=== PATIENT | female | born 1965 | race Two or more races ===

== ENCOUNTER 2022-05-27 11:51 | Outpatient (REF) | payer OTHER, SELFPAY ==
--- NOTE | ~2022-05-27 | XR_ITS ---
EXAMINATION: XR CHEST CLINICAL INFORMATION: Asthma COMPARISON: None TECHNIQUE: 2 views of the chest were obtained. FINDINGS: No significant abnormality is noted involving the heart, lungs, mediastinum, bony thorax or soft tissues. XR/XR chest 2V IMPRESSION: Unremarkable chest examination.
[2022-05-27 12:07] LABS: MANUAL DIFF FLAG NO
[2022-05-27 12:37] LABS: Basophils Percent Auto 0.3 % (0-2); Eosinophils Absolute Auto 0.2 X10*3/uL (0.0-0.4); Hematocrit 40.2 % (37.0-47.0); Hemoglobin 13.2 g/dl (12.0-16.0); Imm Gran Abs Auto 0.03 X10*3/uL (0.00-0.03); Imm Gran Pct Auto 0.3 % (0.0-0.4); Lymphocytes Absolute Auto 2.7 X10*3/uL (1.2-4.9); Lymphocytes Percent Auto 30.1 % (20-40); Mean Corpuscular HGB Conc 32.8 g/dl (31.0-35.0); Mean Corpuscular Hemoglobin 29.9 pg (27.0-33.0); Mean Corpuscular Volume 91.2 fL (80.0-98.0); Mean Platelet Volume 10.4 fL (9.4-12.3); Monocytes Absolute Auto 0.5 X10*3/uL (0.1-1.2); Neutrophils Absolute Auto 5.5 x10*3/uL (2.0-8.3); Neutrophils Percent Auto 61.3 % (45-73); Platelet Count 382 X10*3/uL (160-400); Red Blood Count 4.41 X10*6/uL (4.20-5.50); Red Cell Distribution Width 12.5 % (11.0-16.0)
[2022-05-27 13:21] LABS: Appearance Urine HAZY; Color Urine YELLOW; Glucose Urine UA NEG (NEG); Leukocyte Esterase Urine NEG (NEG); Nitrite Urine POS (NEG); Specific Gravity - Urine >= 1.030 (1.005-1.025); UACC Culture Trigger YES; Urine Blood NEG (NEG); Urine Ketones NEG (NEG); Urine Protein TRACE MG/DL (NEG-TRACE)
[2022-05-27 13:23] LABS: Erythrocyte Sedimentation Rate 68 MM/HR (0-20)
[2022-05-27 13:38] LABS: Bacteria Urine 2+ /LPF; RBC Urine 0 /HPF (0)
[2022-05-27 13:39] LABS: Mucus Urine 2+ /LPF; Squamous Epithelial Cell Urine 2+ /LPF
[2022-05-27 13:40] LABS: Alanine Aminotransferase 23 U/L (0-31); Albumin Level 4.5 g/dL (3.5-5.0); Alkaline Phosphatase 116 U/L (39-117); Anion Gap 13 (12-20); Aspartate Amino Transferase 23 U/L (5-31); Bilirubin Total 0.4 mg/dL (0.0-1.0); Blood Urea Nitrogen 13 mg/dL (9-16); C Reactive Protein 1.57 mg/dL (< or = 0.50); Calcium 10.1 mg/dL (8.4-10.2); Carbon Dioxide 24 mmol/L (22-29); Chloride 107 mmol/L (96-108); Cholesterol 258 mg/dL; Estimated Glomerular Filt Rate > 60; Glucose Fasting 102 mg/dL (60-99); HDL Cholesterol 52 mg/dL; LDL Cholesterol Calculated 186 mg/dl; Potassium 4.5 mmol/L (3.3-5.1); Sodium 139 mmol/L (135-145); Total Protein 8.4 g/dL (6.5-8.0); Triglycerides 104 mg/dL
[2022-05-27 13:53] LABS: TSH reflex Free T4 0.57 uIU/mL (0.32-4.0)
[2022-05-28 17:07] LABS: Lyme Abs Screen <0.90 index
[2022-06-01 10:22] LABS: Anti Nuclear Antibody Screen NEGATIVE (NEGATIVE)
== END 2022-05-27 11:52 | disposition home or self-care (01) ==
LOC: HO.LAB 11:51
PROVIDERS: Visit Provider Internal Medicine
DX: E78.00 Pure hypercholesterolemia, unspecified (principal); M79.7 Fibromyalgia; J45.901 Unspecified asthma with (acute) exacerbation; I10 Essential (primary) hypertension; M79.10 Myalgia, unspecified site; E55.9 Vitamin D deficiency, unspecified; T14.8XXA Other injury of unspecified body region, initial encounter; W57.XXXA Bitten or stung by nonvenomous insect and other nonvenomous arthropods, initial encounter
CPT/HCPCS: 36415; 71046; 80053; 80061; 81001; 82306; 84443; 85025; 85652; 86038; 86039; 86140; 86617; 86618; 87086; 87088; 87186

== ENCOUNTER 2022-07-13 14:41 | Outpatient (REF) | payer OTHER, SELFPAY ==
[2022-07-13 15:04] LABS: MANUAL DIFF FLAG NO
[2022-07-13 15:49] LABS: Basophils Percent Auto 0.6 % (0-2); Eosinophils Absolute Auto 0.2 X10*3/uL (0.0-0.4); Eosinophils Percent Auto 3.2 % (0-4); Hematocrit 36.9 % (37.0-47.0); Hemoglobin 12.2 g/dl (12.0-16.0); Imm Gran Abs Auto 0.02 X10*3/uL (0.00-0.03); Imm Gran Pct Auto 0.3 % (0.0-0.4); Lymphocytes Absolute Auto 2.9 X10*3/uL (1.2-4.9); Lymphocytes Percent Auto 43.5 % (20-40); Mean Corpuscular HGB Conc 33.1 g/dl (31.0-35.0); Mean Corpuscular Hemoglobin 30.3 pg (27.0-33.0); Mean Corpuscular Volume 91.8 fL (80.0-98.0); Mean Platelet Volume 10.6 fL (9.4-12.3); Monocytes Absolute Auto 0.3 X10*3/uL (0.1-1.2); Monocytes Percent Auto 4.4 % (2-11); Neutrophils Absolute Auto 3.2 x10*3/uL (2.0-8.3); Platelet Count 361 X10*3/uL (160-400); Red Blood Count 4.02 X10*6/uL (4.20-5.50); Red Cell Distribution Width 12.8 % (11.0-16.0); White Blood Count 6.6 X10*3/uL (4.8-10.8)
[2022-07-13 16:30] LABS: Erythrocyte Sedimentation Rate 54 MM/HR (0-20)
[2022-07-15 14:46] LABS: IgA 256 mg/dL (47-310); IgG 1614 mg/dL (600-1640); IgM 64 mg/dL (50-300)
== END 2022-07-13 14:42 | disposition home or self-care (01) ==
LOC: HO.LAB 14:41
PROVIDERS: PCP Internal Medicine; Visit Provider Hospitalist
DX: J45.40 Moderate persistent asthma, uncomplicated (principal); J40 Bronchitis, not specified as acute or chronic; G47.33 Obstructive sleep apnea (adult) (pediatric); F33.9 Major depressive disorder, recurrent, unspecified
CPT/HCPCS: 36415; 82784; 82785; 85025; 85652; 86003; 99202

== ENCOUNTER → 2022-08-27 14:13 | Outpatient (BNVA) | payer OTHER, SELFPAY | PROVIDERS: PCP Internal Medicine; Visit Provider Hospitalist | DX: J45.40 Moderate persistent asthma, uncomplicated (principal); J40 Bronchitis, not specified as acute or chronic; G47.33 Obstructive sleep apnea (adult) (pediatric) | CPT/HCPCS: 99212 ==

== ENCOUNTER → 2022-10-25 14:17 | Outpatient (BNVA) | payer OTHER, SELFPAY | PROVIDERS: PCP Internal Medicine; Referring Provider Internal Medicine; Visit Provider Internal Medicine Rheumatology | DX: M79.7 Fibromyalgia (principal); M25.50 Pain in unspecified joint | CPT/HCPCS: 99202 ==

== ENCOUNTER 2022-12-01 13:42 | Outpatient (REF) | payer OTHER, SELFPAY ==
--- NOTE | ~2022-12-01 | XR_ITS ---
EXAMINATION: XR SHOULDER, RIGHT CLINICAL INFORMATION: Pain in right shoulder COMPARISON: 07/30/2020 TECHNIQUE: AP external rotation, Grashey, scapular Y, and axillary views of the right shoulder. FINDINGS: No fracture or dislocation. There is a calcification adjacent the greater tuberosity of the humerus which could reflect a small osteophyte or calcific tendinitis. Visualized right lung and ribs are normal. XR/XR shoulder RT min 2V IMPRESSION: Possible calcific tendinitis. No fracture or dislocation.
[2022-12-01 15:02] LABS: Alanine Aminotransferase 20 U/L (0-31); Albumin Level 4.1 g/dL (3.5-5.0); Alkaline Phosphatase 119 U/L (39-117); Anion Gap 9 (12-20); Aspartate Amino Transferase 17 U/L (5-31); Bilirubin Total 0.2 mg/dL (0.0-1.0); Blood Urea Nitrogen 16 mg/dL (9-16); C Reactive Protein 1.09 mg/dL (< or = 0.50); Calcium 9.9 mg/dL (8.4-10.2); Carbon Dioxide 28 mmol/L (22-29); Chloride 107 mmol/L (96-108); Cholesterol 211 mg/dL; Estimated Glomerular Filt Rate > 60; Glucose Fasting 115 mg/dL (60-99); HDL Cholesterol 44 mg/dL; LDL Cholesterol Calculated 142 mg/dl; Potassium 4.6 mmol/L (3.3-5.1); Sodium 139 mmol/L (135-145); Total Protein 7.5 g/dL (6.5-8.0); Triglycerides 129 mg/dL
[2022-12-01 15:17] LABS: Thyroid Stimulating Hormone 0.63 uIU/mL (0.32-4.0)
[2022-12-01 15:20] LABS: Erythrocyte Sedimentation Rate 48 MM/HR (0-20)
[2022-12-03 16:04] LABS: Cyclic Citrullinated Peptide <16 UNITS
== END 2022-12-01 13:43 | disposition home or self-care (01) ==
LOC: HO.XRAY 13:42
PROVIDERS: PCP Internal Medicine; Visit Provider Internal Medicine Rheumatology
DX: M25.511 Pain in right shoulder (principal); E78.00 Pure hypercholesterolemia, unspecified
CPT/HCPCS: 36415; 73030; 80053; 80061; 84443; 85652; 86140; 86200

== ENCOUNTER → 2022-12-07 14:54 | Outpatient (REF) | payer OTHER, SELFPAY ==
--- NOTE | 2022-12-07 16:40 | PFT_ITS ---
FLOWS: FEV1 82% of predicted at 1.81 L. FVC 71% of predicted at 1.98 L. FEV1 to FVC ratio of 0.91. No bronchodilator response. LUNG VOLUMES: Total lung capacity 73% of predicted at 3.18 L. Residual volume 63% of predicted at 1.04 L. Slow vital capacity 80% of predicted at 2.14 L. Expiratory reserve volume 32% of predicted at 0.24 L. Diffusion capacity is normal. IMPRESSION: Mild restrictive ventilatory defect with no bronchodilator response. Decreased expiratory reserve volume suggests extrathoracic restriction likely secondary to abdominal obesity. Usman Sawyer MD AP/MODL / [phone]
== END ==
LOC: HO.SL 14:54
PROVIDERS: PCP Internal Medicine; Visit Provider Hospitalist
DX: G47.33 Obstructive sleep apnea (adult) (pediatric) (principal); J45.909 Unspecified asthma, uncomplicated
CPT/HCPCS: 94060; 94727; 94729

== ENCOUNTER 2022-12-20 13:44 | Outpatient (REF) | payer OTHER, SELFPAY | END 2022-12-20 13:45 | disposition home or self-care (01) | LOC: HO.MDS 13:44 | PROVIDERS: Visit Provider Hospitalist | DX: J45.50 Severe persistent asthma, uncomplicated (principal) | CPT/HCPCS: 96372; J2357 ==

== ENCOUNTER 2023-01-03 13:55 | Outpatient (REF) | payer OTHER, SELFPAY | END 2023-01-03 13:56 | disposition home or self-care (01) | LOC: HO.MDS 13:55 | PROVIDERS: Visit Provider Hospitalist | DX: J45.50 Severe persistent asthma, uncomplicated (principal) | CPT/HCPCS: 96372; J2357 ==

== ENCOUNTER 2023-01-18 14:18 | Outpatient (REF) | payer OTHER, SELFPAY | END 2023-01-18 14:19 | disposition home or self-care (01) | LOC: HO.MDS 14:18 | PROVIDERS: Visit Provider Hospitalist | DX: J45.50 Severe persistent asthma, uncomplicated (principal) | CPT/HCPCS: 96372; J2357 ==

== ENCOUNTER 2023-02-01 13:57 | Outpatient (REF) | payer OTHER, SELFPAY | END 2023-02-01 13:58 | disposition home or self-care (01) | LOC: HO.MDS 13:57 | PROVIDERS: Visit Provider Hospitalist | DX: J45.50 Severe persistent asthma, uncomplicated (principal) | CPT/HCPCS: 96372; J2357 ==

== ENCOUNTER → 2023-04-01 14:25 | Outpatient (BNVA) | payer OTHER, SELFPAY | PROVIDERS: PCP Internal Medicine; Visit Provider Hospitalist | DX: J45.901 Unspecified asthma with (acute) exacerbation (principal); F41.9 Anxiety disorder, unspecified; Z79.899 Other long term (current) drug therapy | CPT/HCPCS: 99212 ==

== ENCOUNTER 2023-04-06 13:42 | Outpatient (REF) | payer OTHER, SELFPAY | END 2023-04-06 13:43 | disposition home or self-care (01) | LOC: HO.MDS 13:42 | PROVIDERS: Visit Provider Hospitalist | DX: J45.50 Severe persistent asthma, uncomplicated (principal) | CPT/HCPCS: 96372; J2357 ==

== ENCOUNTER 2023-05-21 17:04 | Emergency (ER) | payer OTHER, SELFPAY ==
--- NOTE | ~2023-05-21 | CT_ITS ---
EXAMINATION: CT ABDOMEN AND PELVIS WITHOUT CONTRAST CLINICAL INFORMATION: Upper abdominal pain COMPARISON: None available. TECHNIQUE: Multidetector volumetric imaging was performed from the superior aspect of the liver through the pubic symphysis. Sagittal and coronal reformatted images were obtained on the technologist's workstation. This CT examination was performed using dose optimization techniques as appropriate, variously including the following: *Automated exposure control *Adjustment of mA and/or kV according to patient size (this includes techniques or standardized protocols for targeted exams where dose is matched to indication/reason for exam; i.e. extremities or head) *Use of iterative reconstruction technique DLP: 602 mGy-cm FINDINGS: LUNG BASES: The visualized lung bases are unremarkable. LIVER, GALLBLADDER, AND BILIARY TREE: The liver is normal in size and shape but demonstrates decreased attenuation suggesting hepatic steatosis. No focal hepatic lesion or biliary ductal dilatation is present. Status post cholecystectomy PANCREAS: Unremarkable. SPLEEN: Unremarkable. ADRENAL GLANDS: Unremarkable. KIDNEYS AND URETERS: The kidneys are normal in size, shape, and attenuation. No hydronephrosis, hydroureter, or calculi seen. No perinephric stranding. BLADDER: Unremarkable. GASTROINTESTINAL TRACT: The small and large bowel are unremarkable. The appendix is unremarkable. ABDOMINAL WALL: No significant hernia is appreciated. LYMPH NODES: Normal. VASCULAR: Calcific atherosclerotic changes are present in the infrarenal aorta without aneurysm. PELVIC VISCERA: Unremarkable. OSSEOUS STRUCTURES: Unremarkable. CT/CT abdomen pelvis wo IV con IMPRESSION: A cause for the patient's upper abdominal pain has not been found. Incidental note made of hepatic steatosis and cholecystectomy. Fleischner guidelines were followed.
[2023-05-21 17:36] VITALS: BP 139/78; PULSE 95; RESP 16; TEMP 36.4; O2SAT 95; BMI 21.8
--- NOTE | 2023-05-21 17:36 | ED_ITS ---
HPI - Abdominal Pain General Chief Complaint: Abdominal Pain Stated Complaint: abd pain vomiting Time Seen by Provider: 05/21/23 18:26 Source: patient Mode of arrival: ambulatory Limitations: no limitations History of Present Illness HPI narrative: Patient status post cholecystectomy with history of gastritis comes here for 3 days of upper abdominal pain with vomiting and diarrhea multiple times no fever no chills no urinary symptom pain gets worse when she eats no other family member sick Related Data Home Medications Medication Instructions Recorded Confirmed miscellaneous medical supply ea miscellaneous 05/27/22 04/05/23 Previous Rx's Medication Instructions Recorded NEBULIZER with all related #1 ea 05/27/22 accessories fluticasone propionate 110 2 inh inhalation BID PRN asthma 30 05/27/22 mcg/actuation HFA aerosol inhaler days #12 grams (Flovent HFA) bupropion HCl 200 mg tablet,12 hr 200 mg PO BID #180 caps 05/31/22 sustained-release cyclobenzaprine 5 mg tablet 5 mg PO Q8H PRN muscle spasm 5 05/31/22 days #15 tabs hydroxyzine HCl 25 mg tablet 25 mg PO Q8H PRN for anxiety #90 05/31/22 tabs lidocaine 4 % topical patch 1 patch topical DAILY PRN pain 7 05/31/22 (Aspercreme (lidocaine)) days #10 ea loratadine 10 mg tablet 10 mg PO DAILY PRN for allergies 05/31/22 #30 tabs meloxicam 15 mg tablet 15 mg PO DAILY PRN for pain #30 05/31/22 tabs mirtazapine 7.5 mg tablet 7.5 mg PO BEDTIME #30 tabs 05/31/22 pantoprazole 40 mg tablet,delayed 40 mg PO DAILY 30 days #30 tabs 05/31/22 release sucralfate 1 gram tablet 1 g PO QID #120 tabs 05/31/22 topiramate 25 mg tablet 25 mg PO BEDTIME #30 tabs 05/31/22 triamcinolone acetonide 0.5 % 1 appl topical BID #45 grams 05/31/22 topical cream budesonide-formoterol HFA 160 2 puff inhalation BID 30 days 07/13/22 mcg-4.5 mcg/actuation aerosol #10.2 grams inhaler (Symbicort) inhalational spacing device #1 ea 07/13/22 (Aerochamber MV spacer) fluticasone propionate 50 2 spray intranasal BID 30 days 08/27/22 mcg/actuation nasal #15.8 mL spray,suspension omalizumab 150 mg subcutaneous 375 mg subcut Q2W #3 ea 09/16/22 solution atorvastatin 10 mg tablet 10 mg PO BEDTIME 30 days #30 tabs 09/22/22 montelukast 10 mg tablet 10 mg PO BEDTIME #30 tabs 11/01/22 gabapentin 300 mg capsule 300 mg PO TID 30 days #90 caps 01/05/23 albuterol sulfate 2.5 mg/3 mL 2.5 mg (3 mL) continuous 01/24/23 (0.083 %) solution for nebulization nebulization Q6H 30 days #360 mL albuterol sulfate 90 mcg/actuation 2 puff PO QID PRN shortness of 01/24/23 aerosol inhaler breath or wheezing #8.5 grams mometasone 0.1 % topical cream 1 appl topical DAILY #45 grams 01/25/23 epinephrine 0.3 mg/0.3 mL 0.3 mg (0.3 mL) IM Q10M PRN 04/01/23 injection, auto-injector (EpiPen anaphylaxis 30 days #2 ea 2-Jos) clonazepam 1 mg tablet 1 mg PO TID PRN anxiety 30 days 04/27/23 #90 tabs tramadol 50 mg tablet 50 mg PO Q8H PRN pain 30 days #90 04/27/23 tabs zolpidem 10 mg tablet 10 mg PO BEDTIME PRN insomnia 30 04/27/23 days #30 tabs ketoconazole 2 % shampoo 1 appl topical 3XW #120 mL 05/09/23 ondansetron 4 mg disintegrating 4 mg PO Q6-8H PRN nausea and 05/21/23 tablet vomiting #7 tabs Allergies Allergy/AdvReac Type Severity Reaction Status Date / Time FRUIT Allergy Severe HIVES Uncoded 05/21/23 17:36 Review of Systems Review of Systems Yes all other systems are reviewed and are negative PMFSH Past Medical History Medical History Allergic rhinitis Anxiety Asthma Depression Fibromyalgia Frequent falls GERD without esophagitis Insomnia Migraine Obesity (BMI 30-39.9) LISA (obstructive sleep apnea) Pure hypercholesterolemia Right knee pain Seborrhea capitis Smoker Upper back pain Surgical History History of bilateral breast reduction surgery History of cholecystectomy History of surgery History of tubal ligation Family History Family History Father Medical history unknown Mother Hypertension CVD (cardiovascular disease) Depression Social History Social History Housing: House Alcohol intake: never Patient Tobacco Use Status: Current everyday Tobacco user Cigarettes Per Day: 4 Smoked in Last 30 Days: Yes e-Cigarette/Vaping Use: Never Used Second Hand Smoke Exposure: Yes Use of substances other than those prescribed or required for medical reasons: No Advance Directives: No Advance Directives Information Provided: No Patient : No service: No Current occupational status: disabled Cognitive needs: No Hearing needs: No Vision needs: Yes Physical Exam ED Vital Signs: Vital Signs - 24 hr 05/21/23 17:36 05/21/23 18:47 Temperature 97.6 F 98.3 F Pulse Rate 95 89 Respiratory Rate 16 20 Blood Pressure 139/78 145/79 H Pulse Oximetry 95 90 L Oxygen Delivery Method Room Air Room Air BMI result Body Mass Index 21.8 Appearance: Alert. Oriented X3. No acute distress. Eyes: No pallor or icterus ENT: Pharynx normal. Oral Mucosa moist Neck: Normal inspection. Neck supple. CVS: Normal heart rate and rhythm. Pulses normal. Respiratory: No respiratory distress. Equal air entry bilateral, no wheezing/rales/rhonchi Abdomen: Soft tenderness right upper quadrant and epigastric area Bowel sounds are present, no mass palpable, no CVA tenderness Skin: Skin warm and dry. Normal skin color. Normal skin turgor. Extremities: No lower extremity edema. No calf tenderness Neuro: Oriented X 3. Course Course Course Narrative: This is an RME: Additional HPI, ROS, PE not included below will be deferred to primary provider. Patient is a 57-year-old female who presents emergency department for evaluation of RUQ abdominal pain stabbing in nature, nausea, vomiting, diarrhea x 3 days. pain worsens at times with particular movement. Subjective fever and chills. Denies genitourinary symptoms. hx cholecystectomy 15 years ago. Plan: Labs, urinalysis Medical Decision Making Medical Decision Making [facility] Narrative: Patient with nonspecific upper abdominal pain status post cholecystectomy labs are stable CT scan also negative patient feeling better after IV fluids and pain medicine likely has gastritis with gastroenteritis patient does have fibromyalgi a and takes tramadol for pain will continue same Lab Data [facility] Lab Attestation statement: I reviewed the patient's lab results. 05/21/23 17:50 05/21/23 17:50 Labs: Lab Results 05/21/23 05/21/23 05/21/23 Range/Units 17:50 17:50 17:52 WBC 9.3 (4.8-10.8) X10*3/uL RBC 4.13 L (4.20-5.50) X10*6/uL Hgb 12.7 (12.0-16.0) g/dl Hct 37.6 (37.0-47.0) % MCV 91.0 (80.0-98.0) fL MCH 30.8 (27.0-33.0) pg MCHC 33.8 (31.0-35.0) g/dl RDW 12.5 (11.0-16.0) % Plt Count 375 (160-400) X10*3/uL MPV 10.6 (9.4-12.3) fL Immature Gran % (Auto) 0.2 (0.0-0.4) % Neut % (Auto) 55.5 (45-73) % Lymph % (Auto) 35.3 (20-40) % Walsh % (Auto) 4.7 (2-11) % Eos % (Auto) 3.5 (0-4) % Baso % (Auto) 0.8 (0-2) % Lymph # (Auto) 3.3 (1.2-4.9) X10*3/uL Walsh # (Auto) 0.4 (0.1-1.2) X10*3/uL Eos # (Auto) 0.3 (0.0-0.4) X10*3/uL Baso # (Auto) 0.1 (0.0-0.2) X10*3/uL Abs Immat Gran (auto) 0.02 (0.00-0.03) X10*3/uL Absolute Neuts (auto) 5.2 (2.0-8.3) x10*3/uL Absolute Nucleated RBC 0.000 (0.0-0.012) X10*3/uL Nucleated RBC % (auto) 0.0 (0.0-0.2) /100WBC Sodium 140 (135-145) mmol/L Potassium 4.1 (3.3-5.1) mmol/L Chloride 108 (96-108) mmol/L Carbon Dioxide 24 (22-29) mmol/L Anion Gap 12 (12-20) BUN 8 L (9-16) mg/dL Creatinine 0.79 (0.5-1.4) mg/dL Estim Creat Clear Calc 89.8 Estimated GFR > 60 Random Glucose 103 (60-115) mg/dL Calcium 10.2 (8.4-10.2) mg/dL Total Bilirubin 0.4 (0.0-1.0) mg/dL AST 25 (5-31) U/L ALT 29 (0-31) U/L Alkaline Phosphatase 119 H (39-117) U/L Total Protein 8.1 H (6.5-8.0) g/dL Albumin 4.1 (3.5-5.0) g/dL Lipase 15 (8-78) U/L Urine Color Yellow Urine Appearance Clear Urine pH 5.5 (5.0-9.0) Ur Specific [place] 1.020 (1.005-1.025) Urine Protein Negative (Neg-Trace) mg/dL Urine Glucose (UA) Negative (Negative) mg/dL Urine Ketones Negative (Negative) mg/dL Urine Blood Negative (Negative) Urine Nitrite Negative (Negative) Ur Leukocyte Esterase Negative (Negative) Urine Test (NEGATIVE) 05/21/23 Range/Units 17:52 WBC (4.8-10.8) X10*3/uL RBC (4.20-5.50) X10*6/uL Hgb (12.0-16.0) g/dl Hct (37.0-47.0) % MCV (80.0-98.0) fL MCH (27.0-33.0) pg MCHC (31.0-35.0) g/dl RDW (11.0-16.0) % Plt Count (160-400) X10*3/uL MPV (9.4-12.3) fL Immature Gran % (Auto) (0.0-0.4) % Neut % (Auto) (45-73) % Lymph % (Auto) (20-40) % Walsh % (Auto) (2-11) % Eos % (Auto) (0-4) % Baso % (Auto) (0-2) % Lymph # (Auto) (1.2-4.9) X10*3/uL Walsh # (Auto) (0.1-1.2) X10*3/uL Eos # (Auto) (0.0-0.4) X10*3/uL Baso # (Auto) (0.0-0.2) X10*3/uL Abs Immat Gran (auto) (0.00-0.03) X10*3/uL Absolute Neuts (auto) (2.0-8.3) x10*3/uL Absolute Nucleated RBC (0.0-0.012) X10*3/uL Nucleated RBC % (auto) (0.0-0.2) /100WBC Sodium (135-145) mmol/L Potassium (3.3-5.1) mmol/L Chloride (96-108) mmol/L Carbon Dioxide (22-29) mmol/L Anion Gap (12-20) BUN (9-16) mg/dL Creatinine (0.5-1.4) mg/dL Estim Creat Clear Calc Estimated GFR Random Glucose (60-115) mg/dL Calcium (8.4-10.2) mg/dL Total Bilirubin (0.0-1.0) mg/dL AST (5-31) U/L ALT (0-31) U/L Alkaline Phosphatase (39-117) U/L Total Protein (6.5-8.0) g/dL Albumin (3.5-5.0) g/dL Lipase (8-78) U/L Urine Color Urine Appearance Urine pH (5.0-9.0) Ur Specific [place] (1.005-1.025) Urine Protein (Neg-Trace) mg/dL Urine Glucose (UA) (Negative) mg/dL Urine Ketones (Negative) mg/dL Urine Blood (Negative) Urine Nitrite (Negative) Ur Leukocyte Esterase (Negative) Urine Test NEGATIVE (NEGATIVE) Medications Administered Discontinued Medications Generic Name Dose Route Start Last Admin Trade Name Freq PRN Reason Stop Dose Admin Sodium Chloride 1,000 mls @ 999 mls/hr 05/21/23 18:49 05/21/23 20:24 Ns IV 05/21/23 19:49 Infused .Q1H1M ONE Infusion Morphine Sulfate 4 mg 05/21/23 18:49 05/21/23 19:17 Morphine Sulfate 4 Mg/Ml Cartridge IVPUSH 05/21/23 18:50 4 mg ONCE ONE Administration Protocol Ondansetron HCl 4 mg 05/21/23 18:49 05/21/23 19:17 Ondansetron Hcl 4 Mg/2 Ml Vial IVPUSH 05/21/23 18:50 4 mg ONCE ONE Administration Discharge Plan Discharge Clinical Impression: Gastroenteritis Patient Disposition: Home, Self-Care Instructions: Gastroenteritis (ED) Additional Instructions: Drink plenty of fluids Meds for nausea/vomiting as prescribed Continue your pain medication and follow up with PCP Prescriptions: New ondansetron 4 mg tablet,disintegrating 4 mg PO Q6-8H PRN (Reason: nausea and vomiting) Qty: 7 0RF No Action omalizumab 150 mg recon soln 375 mg subcut Q2W Qty: 3 11RF Rx Instructions: requires multiple injection sites; do not exceed 150 mg per injection site montelukast 10 mg tablet 10 mg PO BEDTIME Qty: 30 1RF albuterol sulfate 2.5 mg /3 mL (0.083 %) solution for nebulization 2.5 mg continuous nebulization Q6H 30 Days Qty: 360 5RF albuterol sulfate 90 mcg/actuation HFA aerosol inhaler 2 puff PO QID PRN (Reason: shortness of breath or wheezing) Qty: 8.5 5RF mometasone 0.1 % cream 1 appl topical DAILY Qty: 45 0RF clonazepam 1 mg tablet 1 mg PO TID PRN (Reason: anxiety) 30 Days Qty: 90 0RF tramadol 50 mg tablet 50 mg PO Q8H PRN (Reason: pain) 30 Days Qty: 90 0RF zolpidem 10 mg tablet 10 mg PO BEDTIME PRN (Reason: insomnia) 30 Days Qty: 30 0RF ketoconazole 2 % shampoo 1 appl topical 3XW Qty: 120 0RF atorvastatin 10 mg tablet 10 mg PO BEDTIME 30 Days Qty: 30 3RF miscellaneous medical supply Misc miscellaneous Rx Instructions: Nebulizer Machine (DME) NEBULIZER with all related accessories See Rx Instructions .Route .MEDSUPPLY Qty: 1 0RF Rx Instructions: As directed up to 4 times a day as needed Flovent HFA 110 mcg/actuation HFA aerosol inhaler 2 inh inhalation BID PRN (Reason: asthma) 30 Days Qty: 12 5RF bupropion HCl 200 mg tablet sustained-release 12 hr 200 mg PO BID Qty: 180 0RF cyclobenzaprine 5 mg tablet 5 mg PO Q8H PRN (Reason: muscle spasm) 5 Days Qty: 15 0RF hydroxyzine HCl 25 mg tablet 25 mg PO Q8H PRN (Reason: for anxiety) Qty: 90 1RF lidocaine [Aspercreme (lidocaine)] 4 % adhesive patch,medicated 1 patch topical DAILY PRN (Reason: pain) 7 Days Qty: 10 0RF loratadine 10 mg tablet 10 mg PO DAILY PRN (Reason: for allergies) Qty: 30 3RF meloxicam 15 mg tablet 15 mg PO DAILY PRN (Reason: for pain) Qty: 30 1RF mirtazapine 7.5 mg tablet 7.5 mg PO BEDTIME Qty: 30 1RF sucralfate 1 gram tablet 1 g PO QID Qty: 120 3RF topiramate 25 mg tablet 25 mg PO BEDTIME Qty: 30 1RF triamcinolone acetonide 0.5 % cream 1 appl topical BID Qty: 45 0RF pantoprazole 40 mg tablet,delayed release (DR/EC) 40 mg PO DAILY 30 Days Qty: 30 5RF gabapentin 300 mg capsule 300 mg PO TID 30 Days Qty: 90 2RF budesonide-formoterol [Symbicort] 160-4.5 mcg/actuation HFA aerosol inhaler 2 puff inhalation BID 30 Days Qty: 10.2 11RF (DME) Aerochamber MV Spacer See Rx Instructions .ROUTE .MEDSUPPLY Qty: 1 0RF Rx Instructions: As directed fluticasone propionate 50 mcg/actuation spray,suspension 2 spray intranasal BID 30 Days Qty: 15.8 11RF epinephrine [EpiPen 2-Jos] 0.3 mg/0.3 mL auto-injector 0.3 mg IM Q10M PRN (Reason: anaphylaxis) 30 Days Qty: 2 6RF Rx Instructions: for 2 doses Print Language: Occitan
[2023-05-21 18:02] LABS: MANUAL DIFF FLAG NO
[2023-05-21 18:07] LABS: UPreg QC Valid YES
[2023-05-21 18:08] LABS: Appearance Urine Clear; Color Urine Yellow; Glucose Urine UA Negative (Negative); Leukocyte Esterase Urine Negative (Negative); Nitrite Urine Negative (Negative); PH 5.5 (5.0-9.0); Urine Blood Negative (Negative); Urine Ketones Negative (Negative); Urine Protein Negative (Neg-Trace)
[2023-05-21 18:09] LABS: Urine Pregnancy NEGATIVE (NEGATIVE)
[2023-05-21 18:17] LABS: Alanine Aminotransferase 29 U/L (0-31); Albumin Level 4.1 g/dL (3.5-5.0); Alkaline Phosphatase 119 U/L (39-117); Anion Gap 12 (12-20); Aspartate Amino Transferase 25 U/L (5-31); Bilirubin Total 0.4 mg/dL (0.0-1.0); Blood Urea Nitrogen 8 mg/dL (9-16); Calcium 10.2 mg/dL (8.4-10.2); Carbon Dioxide 24 mmol/L (22-29); Chloride 108 mmol/L (96-108); Creatinine Clr Calc Pharmacy 89.8; Estimated Glomerular Filt Rate > 60; Glucose Random 103 mg/dL (60-115); Lipase 15 U/L (8-78); Potassium 4.1 mmol/L (3.3-5.1); Sodium 140 mmol/L (135-145); Total Protein 8.1 g/dL (6.5-8.0)
[2023-05-21 18:29] LABS: Basophils Absolute Auto 0.1 X10*3/uL (0.0-0.2); Basophils Percent Auto 0.8 % (0-2); Eosinophils Absolute Auto 0.3 X10*3/uL (0.0-0.4); Eosinophils Percent Auto 3.5 % (0-4); Hematocrit 37.6 % (37.0-47.0); Hemoglobin 12.7 g/dl (12.0-16.0); Imm Gran Abs Auto 0.02 X10*3/uL (0.00-0.03); Imm Gran Pct Auto 0.2 % (0.0-0.4); Lymphocytes Absolute Auto 3.3 X10*3/uL (1.2-4.9); Lymphocytes Percent Auto 35.3 % (20-40); Mean Corpuscular HGB Conc 33.8 g/dl (31.0-35.0); Mean Corpuscular Hemoglobin 30.8 pg (27.0-33.0); Mean Platelet Volume 10.6 fL (9.4-12.3); Monocytes Absolute Auto 0.4 X10*3/uL (0.1-1.2); Monocytes Percent Auto 4.7 % (2-11); Neutrophils Absolute Auto 5.2 x10*3/uL (2.0-8.3); Neutrophils Percent Auto 55.5 % (45-73); Platelet Count 375 X10*3/uL (160-400); Red Blood Count 4.13 X10*6/uL (4.20-5.50); Red Cell Distribution Width 12.5 % (11.0-16.0); White Blood Count 9.3 X10*3/uL (4.8-10.8)
[2023-05-21 18:47] VITALS: BP 145/79; PULSE 89; RESP 20; TEMP 36.8; O2SAT 90
--- NOTE | 2023-05-21 18:54 | PC.NURSE ---
history of asthma and severe arthritis
[2023-05-21] MEDS: 0.9 % Sodium Chloride 1,000 ML 999 ML IV (19:17)
[2023-05-21] MEDS: Morphine Sulfate 4 MG/ML CARTRIDGE IVPUSH (19:17)
[2023-05-21] MEDS: ondansetron HCL 4 MG/2 ML VIAL IVPUSH (19:17)
--- NOTE | 2023-05-21 19:26 | PC.NURSE ---
pt medicated with morphine and zofran. tolerated well
== END 2023-05-21 21:51 | disposition home or self-care (01) ==
PROVIDERS: Nurse Practitioner Family; Emergency Provider Internal Medicine; PCP Internal Medicine
DX: K52.9 Noninfective gastroenteritis and colitis, unspecified (principal); E78.00 Pure hypercholesterolemia, unspecified; K21.9 Gastro-esophageal reflux disease without esophagitis; Z90.49 Acquired absence of other specified parts of digestive tract; Z98.51 Tubal ligation status; F17.210 Nicotine dependence, cigarettes, uncomplicated; Z79.899 Other long term (current) drug therapy; Z79.02 Long term (current) use of antithrombotics/antiplatelets
CPT/HCPCS: 36415; 74176; 80053; 81003; 81025; 83690; 85025; 96361; 96374; 96375; 99284; J2270; J2405

== ENCOUNTER 2023-05-23 14:47 | Outpatient (REF) | payer OTHER, SELFPAY | END 2023-05-23 14:48 | disposition home or self-care (01) | LOC: HO.MDS 14:47 | PROVIDERS: PCP Internal Medicine; Visit Provider Hospitalist | DX: J45.50 Severe persistent asthma, uncomplicated (principal) | CPT/HCPCS: 96372; J2357 ==

== ENCOUNTER 2023-06-06 14:20 | Outpatient (REF) | payer OTHER, SELFPAY | END 2023-06-06 14:21 | disposition home or self-care (01) | LOC: HO.MDS 14:20 | PROVIDERS: Visit Provider Hospitalist | DX: J45.50 Severe persistent asthma, uncomplicated (principal) | CPT/HCPCS: 96372; J2357 ==

== ENCOUNTER 2023-06-20 14:20 | Outpatient (REF) | payer OTHER, SELFPAY | END 2023-06-20 14:21 | disposition home or self-care (01) | LOC: HO.MDS 14:20 | PROVIDERS: Visit Provider Hospitalist | DX: J45.50 Severe persistent asthma, uncomplicated (principal) | CPT/HCPCS: 96372; J2357 ==

== ENCOUNTER 2023-08-05 13:15 | Outpatient (AMB) | payer OTHER, SELFPAY ==
[2023-08-05 13:28] VITALS: PULSE 89; O2SAT 98; BMI 35.3
--- NOTE | 2023-08-05 13:28 | MHC.OFFVIS ---
Intake Vital Signs 08/05/23 13:28 Height 4 ft 11 in Weight 174 lb 13.225 oz BMI 35.3 Pulse 89 Pulse Source Pulse Oximeter Pulse Oximetry (%) 98 Oxygen Delivery Method Room Air Intake Visit Reasons: Asthma Wrapper Sorter Required: No Allergies FRUIT Allergy (Severe, Uncoded 08/05/23 13:29) HIVES HPI HPI Comments History of Present Illness Details The patient is a 57-year-old woman with a known history of asthma for the last several years. Her asthma seems to be getting worse. She states that she developed asthma when she moved to [facility]. She complains of chest tightness and coughing. She also has audible wheezing. She has been using Flovent on a regular basis and has required her rescue inhaler multiple times a day. The patient states that she is allergic to everything. Although I do not see any formal allergy testing at this time. Will optimize her respiratory therapy at this time. She also states that she gets very anxious and she does develop chest tightness. In addition to this the patient states that she does wake up short of breath at times. She complains of daytime drowsiness with an elevated [place] score of 12/24. It is likely that the episodes are apneic episodes. The patient would benefit from a home sleep study at this time. 08/27/2022 the patient is here for a pulmonary follow-up visit. The patient overall has been running worsening cough shortness of breath. He has been sick now for about 5 days. Apparently she tested negative for COVID-19. She has been using inhaler and her nebulizer every 3 hours. We did review her allergy testing which was very abnormal with multiple triggers. The patient's IgE level is up to 1200. therefore, the patient does have allergic asthma and does require multiple courses of prednisone even on maximum respiratory therapy. Therefore I will request the patient start Xolair this time. The patient also needs to undergo pulmonary function studies when she feels better and also needs to reschedule her sleep study which she did not have done. She continues to have daytime drowsiness. She does have issues with snoring at nighttime. Her [place] score still elevated 11/24. When she returns can review her pftS and her PSG. 23 The patient here for a pulmoary follow up visit. Overall, the patient is doing better on the Xolair therapy. Continue to use the symbicort twice a day. Has not required prednisone. She needs to have an Epipen, we provided teaching and will send the pharmacy. Still having daytime drowsiness with EPWORTH 07/21, but, PSG not available. Her PFTs demonstrates a mild restrictive process. 08/05/2023 the patient is here for pulmonary follow-up visit. She does complain of productive cough. Moderate severity. The patient has been using her respiratory therapy although she is not using Symbicort. I did explain to her Symbicort be a better medication for will go ahead and stop Flovent. In addition to that she continues on the Xolair. The patient unfortunately has been smoking. She does have worsening cough which is likely related to smoking. Likely has a component chronic bronchitis. Will go ahead prescribe azithromycin she can use 3 times a week x1 month to see if this provides relief. In the meantime she needs to quit smoking she is quit altogether cold turkey in the past she will go ahead and attempt that again. [facility] Medical History Allergic rhinitis Anxiety Asthma Depression Fibromyalgia Frequent falls GERD without esophagitis Insomnia Migraine Obesity (BMI 30-39.9) LISA (obstructive sleep apnea) Pure hypercholesterolemia Right knee pain Seborrhea capitis Smoker Upper back pain Surgical History History of bilateral breast reduction surgery History of cholecystectomy History of surgery History of tubal ligation Family History Father Medical history unknown Mother Hypertension CVD (cardiovascular disease) Depression Social History Housing: House Alcohol intake: never Patient Tobacco Use Status: Current everyday Tobacco user Cigarettes Per Day: 4 e-Cigarette/Vaping Use: Never Used Second Hand Smoke Exposure: Yes service: No Current occupational status: disabled Cognitive needs: No Hearing needs: No Vision needs: Yes Review of Systems Const Reports body aches (diffuse), Denies chills, Reports difficulty sleeping, Reports fatigue, Denies fever(s), Denies headache(s) and Reports lethargy ENT Denies dysphagia, Denies dizziness, Denies otalgia, Denies headache(s), Denies sinus pain and Denies sore throat Card Denies chest pain, Denies palpitations and Reports dyspnea on exertion (mild) Resp Reports chest congestion, Reports cough, Reports dyspnea on exertion (mild) and Denies wheezing GI Denies abdominal pain, Denies constipation, Denies dysphagia, Denies heartburn, Denies diarrhea, Denies nausea and Denies vomiting Denies nocturia and Denies dysuria Musc Reports back pain (over the lumbar spine (chronic) and more recently over the thoracic spine), Reports myalgias (c/o diffuse pain) and Reports arthralgias (right knee; increased pain in both hands lately) Neuro Denies dizziness and Denies headache(s) Psych Reports anxiety and Reports depression Endo Reports fatigue and Denies palpitations Aller/Immun Denies wheezing Physical Exam Vital Signs: Last Vital Signs Pulse 89 08/05/23 13:28 Pulse Ox 98 08/05/23 13:28 Oxygen Delivery Method Room Air 08/05/23 13:28 BMI result Body Mass Index 35.3 Const General: comfortable HEENT Head: Yes normal to inspection Eyes General: appearance normal, both eyes and all related structures Neck Neck: Yes supple Chest Chest palpation & inspection: normal inspection of the chest Resp Effort & Inspection: normal respiratory effort Auscultation: no rales, no rhonchi, no wheezes and diminished lung sounds Cardio Rate: regular rate Rhythm: regular rhythm Heart sounds: S1 normal heart sound present and S2 normal heart sound present GI Inspection: Yes normal to inspection Skin Rashes: rashes noted (scalp, psoriasis) Extrem General: Yes no clubbing, cyanosis or edema Assessment & Plan Assessment & Plan (1) Asthma: Code(s): J45.909 - Unspecified asthma, uncomplicated Qualifiers: Asthma complication type: uncomplicated Asthma persistence: persistent Asthma severity: moderate Qualified Code(s): J45.40 - Moderate persistent asthma, uncomplicated (2) LISA (obstructive sleep apnea): Code(s): G47.33 - Obstructive sleep apnea (adult) (pediatric) (3) Bronchitis: Code(s): J40 - Bronchitis, not specified as acute or chronic Plan start Symbicort with spacer stop Flovent start Azithromycin MWF Tobacco cessation Nebulizer ADAM as needed continue xolair Epipen teaching, rx sent F/U 6 months Medications: New azithromycin Take 1 tablet on Tuesday/Tuesday/Tuesday 250 mg PO 3XW 28 days 12 tabs 0RF K21.9 - Gastro-esophageal reflux disease without esophagitis Refilled budesonide-formoterol 160-4.5 mcg/actuation (Symbicort) 2 puffs inhalation BID 30 days 10.2 grams 11RF J44.9 - Chronic obstructive pulmonary disease, unspecified Discontinued fluticasone propionate 110 mcg/actuation (Flovent HFA) Discontinued Reason: Doctor's Order 2 inhalations inhalation BID 30 days PRN 12 grams 5RF asthma J45.901 - Unspecified asthma with (acute) exacerbation Coding Level of Care Code Est Pt Level 4 (70365) Diagnoses Moderate persistent asthma without complication J45.40 Asthma complication type: uncomplicated Asthma persistence: persistent Asthma severity: moderate LISA (obstructive sleep apnea) G47.33 Bronchitis J40 Time Spent (min) 17
== END 2023-08-05 13:55 | disposition home or self-care (01) ==
PROVIDERS: PCP Internal Medicine; Visit Provider Hospitalist
DX: J45.40 Moderate persistent asthma, uncomplicated (principal); G47.33 Obstructive sleep apnea (adult) (pediatric); J40 Bronchitis, not specified as acute or chronic
CPT/HCPCS: 99214

== ENCOUNTER 2023-08-15 | Outpatient (REF) | payer OTHER, SELFPAY | END 2023-08-15 00:01 | disposition home or self-care (01) | LOC: CF | PROVIDERS: Visit Provider Hospitalist | DX: J45.41 Moderate persistent asthma with (acute) exacerbation (principal); G47.33 Obstructive sleep apnea (adult) (pediatric); J40 Bronchitis, not specified as acute or chronic; F17.210 Nicotine dependence, cigarettes, uncomplicated | CPT/HCPCS: 99212; J2357 ==

== ENCOUNTER 2025-07-12 15:25 | Outpatient (REF) | payer OTHER, SELFPAY ==
--- NOTE | ~2025-07-12 | XR_ITS ---
EXAMINATION: XR CERVICAL SPINE CLINICAL INFORMATION: M54.2 - Cervicalgia COMPARISON: July 30, 2020 TECHNIQUE: AP lateral and atlantoodontoid views FINDINGS: Craniocervical junction is intact. Small marginal osteophyte formation C4-5. No acute cortical disruption. No gross malalignment. No lytic or blastic lesions. Loss of the physiologic cervical lordosis. Upper airway is patent. Dental cavity in the molar of the mandible no fully included in the [id number]. XR/XR cervical spine 3V IMPRESSION: Mild cervical spondylosis C4-5. Electronically signed by: Chris Martins MD 07/12/2025 04:00 PM EDT
--- NOTE | ~2025-07-12 | XR_ITS ---
EXAMINATION: XR HIP, LEFT CLINICAL INFORMATION: M25.552 - Pain in left hip COMPARISON: Correlated to CT abdomen pelvis dated May 21, 2023. TECHNIQUE: AP and oblique views of the left hip. FINDINGS: No acute cortical disruption or malalignment. No lytic or blastic lesions. No subcutaneous emphysema. Preservation of the joint space. XR/XR hip LT min 2V IMPRESSION: No acute fracture or dislocation. Negative exam. Electronically signed by: Chris Martins MD 07/12/2025 03:59 PM EDT
--- NOTE | ~2025-07-12 | XR_ITS ---
EXAMINATION: XR LUMBOSACRAL SPINE CLINICAL INFORMATION: M54.50 - Low back pain, unspecified COMPARISON: July 30, 2020 TECHNIQUE: AP and lateral views FINDINGS: Multilevel marginal osteophyte formation and endplate sclerosis throughout the axial skeleton pronounced at L1 to and L3-4 levels. Stable superior endplate compression deformity representing 20% volume loss at L3. Grade 1 retrolisthesis at L4-5. No lytic or blastic lesions. Vascular calcification, abdominal aorta. Vascular clips in the right upper quadrant abdomen prior laparoscopic cholecystectomy.. XR/XR lumbar spine 2-3V IMPRESSION: Multilevel thoracolumbar spondylosis resulting in grade 1 retrolisthesis L4-5. Electronically signed by: Chris Martins MD 07/12/2025 03:58 PM EDT
--- OUTSIDE RECORDS SUMMARY | 2025-07-12 15:29 | XMS_ITS | Patient Health Record ---
Author Organization [facility] Address [facility] [address] [place] [address] Care Team Providers Care Gamma Operator Name Role Phone FRANCHESCA [facility] Primary Care Provider EVETTE SZYMANSKI Unavailable [phone] Allergies No Known Allergies Reason For Referral No Information Social History Tobacco Use: Social History Observation Description Date Details (start date - stop date) Current Smoker NA - NA Sexual History Question Answer Notes Had sex in the past 12 months (vaginal, oral, or anal)? No AUDIT-C (Standard) Question Answer Notes Did you have a drink containing alcohol in the p ast year? No Points 0 Interpretation Negative Tobacco Control (Standard) Question Answer Notes Tobacco use: Current smoker Vital Signs Heart Rate 105 /min 07/19/2024 Se jeff Signos vitales para proceso de alfonso. Se realiza reestimado de dolor, paciente refiere intensidad 0 en la escala de valoracion del dolor. EZ GOODRICH RN BSN. Lic. [id number], RASTAFARI 07/19/2024 03:21:08 PM > Temperature 36.9 C 07/19/2024 Se jeff Signos vitales para proceso de alfonso. Se realiza reestimado de dolor, paciente refiere intensidad 0 en la escala de valoracion del dolor. EZ GOODRICH RN BSN. Lic. [id number], RASTAFARI 07/19/2024 03:21:08 PM > Respiratory Rate 18 /min 07/19/2024 Se jeff Si gnos vitales para proceso de alfonso. Se realiza reestimado de dolor, paciente refiere intensidad 0 en la escala de valoracion del dolor. EZ GOODRICH RN BSN. Lic. [id number], 07/19/2024 03:21:08 PM > Height-cm 149.86 cm 07/19/2024 Se jeff Signos vitales para proceso de alfonso. Se realiza reestimado de dolor, paciente refiere intensidad 0 en la escala de valoracion del dolor. EZ GOODRICH RN BSN. Lic. [id number], 07/19/2024 03:21:08 PM > Oximetry 93 % 07/19/2024 Se jeff Signos vitales para proceso de alfonso. Se realiza reestimado de dolor, paciente refiere intensidad 0 en la escala de valoracion del dolor. EZ GOODRICH RN BSN. Lic. [id number], 07/19/2024 03:21:08 PM > Blood pressure diastolic 68 mm Hg 07/19/2024 Se jeff Signos vitales para proceso de alfonso. Se realiza reestimado de dolor, paciente refiere intensidad 0 en la escala de valoracion del dolor. EZ GOODRICH RN BSN. Lic. [id number], 07/19/2024 03:21:08 PM > Weight-kg 78.02 kg 07/19/2024 Se jeff Signos vitales para proceso de alfonso. Se realiza reestimado de dolor, paciente refiere intensidad 0 en la escala de valoracion del dolor. EZ GOODRICH RN BSN. Lic. [id number], 07/19/2024 03:21:08 PM > Height 4ft 11in in 07/19/2024 Se jeff Signos vitales para proceso de alfonso. Se realiza reestimado de dolor, paciente refiere intensidad 0 en la escala de valoracion del dolor. EZ GOODRICH RN BSN. Lic. [id number], 07/19/2024 03:21:08 PM > Blood pressure systolic 121 mm Hg 07/19/2024 Se t yeison Signos vitales para proceso de alfonso. Se realiza reestimado de dolor, paciente refiere intensidad 0 en la escala de valoracion del dolor. EZ GOODRICH RN BSN. Lic. [id number], RASTAFARI 07/19/2024 03:21:08 PM > Weight 172 lbs 07/19/2024 Se jeff Signos vitales para proceso de alfonso. Se realiza reestimado de dolor, paciente refiere intensidad 0 en la escala de valoracion del dolor. EZ GOODRICH RN BSN. Lic. [id number], RASTAFARI 07/19/2024 03:21:08 PM > BMI 34.74 kg/m2 07/19/2024 Se jeff Signos vitales para proceso de alfonso. Se realiza reestimado de dolor, paciente refiere intensidad 0 en la escala de valoracion del dolor. EZ GOODRICH RN BSN. Lic. [id number], RASTAFARI 07/19/2024 03:21:08 PM > Encounters Encounter Location Date Provider Diagnosis FRANCHESCA [facility] [address] [place] [phone] 07/19/2024 EVETTE CHIU Abrasion of lower back and pelvis, initial encounter S30.810A Assessments Encounter Date Diagnosis (ICD Code) Assessment Notes Treatment Notes Treatment Clinical Notes Section Notes 07/19/2024 Abrasion of lower back and pelvis, initial encounter (ICD-10 - S30.810A) 07/19/2024 Other Se ubica paciente en CP1 acostada en claus con ambas barandas elevadas por seguridad en compania de la agente [place] case de placa [id number] .Se orienta paciente a notificar algun cambio significativo.Se le presenta paciente a . BRENDAN XIONG RN ADN. Lic.[id number], ALEX 07/19/2024 02:28:52 PM > Agente [place] case de placa [id number] Nos tony el case de querella respecto al richy. [id number] BRENDAN XIONG RN ADN. Lic.[id number], ALEX 07/19/2024 02:30:01 PM > MADI HENNESSY RN BSN. Lic. [id number], ROSA 07/19/2024 03:18:10 PM > Paciente es dado de alfonso en condicion estable, alerta y orientado en tiempo, lugar y persona en compania de la [facility] [place]. Se educa sobre instrucciones medicas, tratamiento a seguir en el hogar, seguimiento con medico primario, y a pasar con el personal de servicio al paciente para completar proceso de alfonso, refiere entender. Vitales medidos y documentados previos al alfonso. Paciente refiere escala de dolor en 0 al momento del alfonso. MADI HENNESSY RN BSN. Lic. [id number], ROSA 07/19/2024 03:18:12 PM > Plan Of Treatment No Information Medical (General) History Medical History History ICD Code fibromyalgia asthma Colesterol HBP
--- OUTSIDE RECORDS SUMMARY | 2025-07-12 15:29 | XMS_ITS | Clinical Summary ---
Author Organization [employer] Address [address] [place] [address] [address] [place] [address] Care Team Providers Care Jammer Operator Name Role Phone Unavailable Primary Care Provider Unavailabl e Immunizations Immunization Administration Dates Next Due Pfizer Covid-19 Vaccine 12+ 08/26/2021, Pfizer Covid-19 Vaccine 12+ Bivalent 01/18/2023 Social History Tobacco Use Types Packs/Day Years Used Date Smoking Tobacco: Never Assessed Comments Unknown Sex and Gender Information Value Date Recorded Sex Assigned at Female 01/18/2023 3:32 PM EST Legal Sex Female 3:30 PM EST Gender Identity Female 01/18/2023 3:32 PM EST Sexual Orientation Straight 01/18/2023 3: 32 PM EST Plan of Treatment Health Maintenance Due Date Last Done Comments CT Colonography 1967 Colonoscopy 1967 Colorectal Cancer Screening 1967 Depression Screening 1967 FIT DNA/Cologuard 1967 FIT 1967 FOBT 1967 HIV Screening 1967 SDOH Screening 1967 Sigmoidoscopy 1967 Disability Screening 1967 Alcohol/Substance Use Screening 1979 Tobacco Screening 1979 Hepatitis C Screening 1985 DTaP/Tdap/Td Vaccines (1 - Tdap) 1986 Hepatitis B Vaccines (1 of 3 - 19+ 3-dose series) 1986 Pap Smear 1988 Cervical Cancer Screening 1997 HPV/Cotest 1997 Mammogram 2007 Pneumococcal Vaccine: 50+ Years (1 of 1 - PCV) 2017 Zoster Vaccines (1 of 2) 2017 COVID-19 Vaccine (4 - 2023-2 5 season) 2024 01/18/2023, 08/26/2021, 08/05/2021 Influenza Vaccine (#1) 2025 RSV Patients and Patients Aged 60 years or older (1 - 1-dose 75+ series) 2042 HIB Vaccines Aged Out No longer eligi ble based on patient's age to complete this topic HPV Vaccines Aged Out No longer eligi ble based on patient's age to complete this topic Hepatitis A Vaccines Aged Out No long er eligible based on patient's age to complete this topic IPV Vaccines Aged Out No longer eligi ble based on patient's age to complete this topic Meningococcal B Vaccine Aged Out No l onger eligible based on patient's age to complete this topic Meningococcal Vaccine Aged Out No omar asia eligible based on patient's age to complete this topic RSV under 20 months Aged Out No longe r eligible based on patient's age to complete this topic Rotavirus Vaccines Aged Out No longer eligible based on patient's age to complete this topic Insurance [place] [address] ([facility] [address])
== END 2025-07-12 15:26 | disposition home or self-care (01) ==
LOC: HO.XRAY 15:25
PROVIDERS: PCP Internal Medicine; Visit Provider Internal Medicine
DX: M54.2 Cervicalgia (principal); M25.552 Pain in left hip; M54.50 Low back pain, unspecified
CPT/HCPCS: 72040; 72100; 73502

== ENCOUNTER → 2025-07-12 15:30 | Outpatient (BNV) | payer OTHER, SELFPAY | PROVIDERS: PCP Internal Medicine; Visit Provider Radiology Diagnostic Radiology | DX: M43.16 Spondylolisthesis, lumbar region (principal); M25.552 Pain in left hip; M47.812 Spondylosis without myelopathy or radiculopathy, cervical region | CPT/HCPCS: 72040; 72100; 73502 ==

== ENCOUNTER 2025-07-25 14:10 | Outpatient (AMB) | payer OTHER, SELFPAY ==
[2025-07-25 14:12] VITALS: BP 112/82; PULSE 108; TEMP 36.1; O2SAT 96; BMI 33.2
--- NOTE | 2025-07-25 14:12 | MHC.PC.OV ---
Vital Signs 07/25/25 14:12 Height 4 ft 11 in Weight 164 lb 8 oz BMI 33.2 BP 112/82 Blood Pressure Location Lt brachial Position Sitting Pulse 108 H Pulse Source Pulse Oximeter Temp 97.0 F Temp Source Temporal Artery Scan Pulse Oximetry (%) 96 Oxygen Delivery Method Room Air Intake Visit Reasons: Annual Physical Pond Supervisor Required: Yes Pond Supervisor Language: Grocery Supervisor Name: Jr([id number]) Allergies FRUIT Allergy (Severe, Uncoded 07/27/25 03:33) HIVES Medication List - Last Reconciled 07/27/[address] MD albuterol sulfate 2.5 mg (3 mL) continuous nebulization Q6H 30 days albuterol sulfate 90 mcg/actuation (Ventolin HFA) 2 puffs inhalation Q4-6H PRN atorvastatin 10 mg PO BEDTIME budesonide-formoterol 160-4.5 mcg/actuation (Symbicort) 2 puffs inhalation BID 30 days bupropion HCl SR 200 mg PO BID clonazepam 1 mg PO TID PRN 30 days cyclobenzaprine 5 mg PO Q8H PRN 5 days epinephrine (EpiPen 2-Jos) 0.3 mg (0.3 mL) IM Q10M PRN 30 days fluticasone propionate 50 mcg/actuation 2 sprays intranasal BID 30 days gabapentin 300 mg PO TID 30 days hydroxyzine HCl 25 mg PO Q8H PRN inhalational spacing device (Aerochamber MV spacer) As directed ketoconazole 2% 1 appl topical 3XW lidocaine 4% (Aspercreme (lidocaine)) 1 patch topical DAILY PRN 7 days loratadine 10 mg PO DAILY PRN meloxicam 15 mg PO DAILY PRN mirtazapine 7.5 mg PO BEDTIME miscellaneous medical supply Nebulizer Machine mometasone 0.1% 1 appl topical DAILY montelukast 10 mg PO BEDTIME naloxone 4 mg/actuation (Narcan) 4 mg intranasal Q2M PRN [NEBULIZER with all related accessories As directed up to 4 times a day as needed] omalizumab 375 mg subcut Q2W ondansetron 4 mg PO Q6-8H PRN pantoprazole 40 mg PO DAILY 30 days sucralfate 1 g PO QID topiramate 25 mg PO BEDTIME tramadol 50 mg PO Q8H PRN 30 days triamcinolone acetonide 0.5% 1 appl topical BID zolpidem 10 mg PO BEDTIME PRN 30 days Tobacco use date assessed: 07/25/25 Dental Screening Dental Screen Date: 07/25/25 Did you have a dental visit in the last 12 months?: Yes Did you have a dental problem in the last 6 months where you did not have access to dental care?: No Was dental information given to patient?: Patient has dentist HPI Annual Physical HPI Details Patient comes in today for her annual physical examination States that she continues to experience diffuse pain and multiple joint pains due to her fibromyalgia She denies any headaches or dizziness Denies any chest pains, no increased shortness of breath No nausea/vomiting, no abdominal pain No change in bowel habits noted She denies any acute urinary symptoms She has had no follow-up labs done since 2022 She referred to GI for colon cancer screening in 2022 and had an appt scheduled 09/27/2023 but she apparently did not show up her appointment She has no recent mammogram 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 done in the past few years [facility] Medical History (Updated 07/27/25 @ 04:[address] MD) Migraine Pure hypercholesterolemia LISA (obstructive sleep apnea) Obesity (BMI 30-39.9) Depression Allergic rhinitis GERD without esophagitis Seborrhea capitis Fibromyalgia Asthma Smoker Frequent falls Right knee pain Insomnia Anxiety Surgical History History of surgery History of tubal ligation History of cholecystectomy History of bilateral breast reduction surgery Family History Father Medical history unknown Mother Hypertension CVD (cardiovascular disease) Depression Social History Housing: House Alcohol intake: never Patient Tobacco Use Status: Current everyday Tobacco user Tobacco use type: Cigarette Cigarettes Per Day: 7 e-Cigarette/Vaping Use: Never Used Second Hand Smoke Exposure: Yes service: No Current occupational status: disabled Cognitive needs: No Hearing needs: No Vision needs: Yes Questionnaire PHQ-9 Over the last 2 weeks, how often have you been bothered by any of the following problems? 1. Little interest or pleasure in doing things: more than half the days 2. Feeling down, depressed, or hopeless: more than half the days 3. Trouble falling or staying asleep, or sleeping too much: more than half the days 4. Feeling tired or having little energy: more than half the days 5. Poor appetite or overeating: not at all 6. Feeling bad about yourself - or that you are a failure or have let yourself or your family down: more than half the days 7. Trouble concentrating on things, such as reading the newspaper or watching television: more than half the days 8. Moving or speaking so slowly that other people could have noticed. Or the opposite - being so fidgety or restless that you have been moving around a lot more than usual: not at all 9. Thoughts that you would be better off or of hurting yourself in some way: not at all Total score: 12 Depression Screening Interpretation: Positive Depression Screening Follow-up: Existing condition and In treatment Depression Screening Done: Yes 69548 - PHQ-9 Billing: Yes Source: Developed by Drs. Benjamin Adam, Candis Prasad, Rasta Ma and colleagues, with an educational rudolph from [employer]. Thrive Questionnaire Date Thrive assessed: 07/25/25 I am a: Patient What is your living situation today?: I have a steady place to live Within the past 12 months, did the food you bought not last and you didn't have the money to get more?: Never true Within the past 12 months, did you worry whether your food would run out before you got money to buy more?: Never true Do you have trouble paying for medicines?: No Do you have trouble getting transportation to medical appointments?: No Do you have trouble paying your heating and electricity bill?: No Do you have trouble taking care of your child, family member or friend?: No Do you have trouble with day-to-day activities such as bathing, preparing meals, shopping, managing finances, etc.?: No Are you currently unemployed and looking for a job?: No Are you interested in more education?: No Please select the resources that you would like help with: None Currently or been in a relationship where the following occur: No concerns reported THRIVE Score: 0 AUDIT C Alcohol Use Questionnaire (AUDIT-C) 1. How often do you have a drink containing alcohol?: Never 3. How often do you have six or more drinks on one occasion?: Never Total Score: 0 Score Reviewed/Action Taken: Yes WESLY-7 AMB Questionnaire WESLY-7 Date WESLY - 7 assessed: 07/25/25 Feeling nervous, anxious, or on edge: 3 = Nearly every day Not being able to stop or control worryin = Nearly every day Worrying too much about different things: 3 = Nearly every day Trouble relaxin = Nearly every day Being so restless that it is hard to sit still: 3 = Nearly every day Becoming easily annoyed or irritable: 0 = Not at all Feeling afraid as if something awful might happen: 0 = Not at all Total WESLY-7 score (0-4 normal; 5-9 mild; 10-14 moderate; 15-21 severe): 15 Source: Developed by Drs. Benjamin Adam, Candis Prasad, Rasta Ma and colleagues, with an educational rudolph from [employer]. WESLY-7 Assessment Billing WESLY-7 Assessment Tool: WESLY-7 Assessment 05493 Review of Systems Const Reports body aches (diffuse), Reports difficulty sleeping, Reports fatigue, Denies fever(s) and Denies headache(s) Eyes Denies blurry vision, Denies change in vision, Denies irritation and Denies itchy eyes ENT Denies dysphagia, Denies dizziness, Denies otalgia, Denies headache(s) and Denies sore throat Card Reports chest pain (on and off sharp chest wall pains), Denies palpitations and Reports dyspnea on exertion (mild) Resp Denies chest congestion, Denies cough, Reports dyspnea on exertion (mild) and Denies wheezing GI Reports abdominal pain (on and off, mostly over the epigastric area), Reports bloating, Denies constipation, Denies dysphagia, Denies heartburn, Denies diarrhea (but stools are still soft), Reports nausea (on and off) and Denies vomiting Denies nocturia and Denies dysuria Musc Reports back pain (over the lumbar spine (chronic) and more recently over the thoracic spine), Reports myalgias (c/o diffuse pain) and Reports arthralgias (right knee; increased pain in both hands lately) Skin/Breast Denies breast pain, Denies breast mass, Denies change in pigmentation, Denies lesions, Denies rash and Denies unusual bruising Neuro Denies dizziness and Denies headache(s) Psych Reports anxiety and Reports depression Endo Reports fatigue and Denies palpitations Ancelmo/Lymph Denies easy bruising Aller/Immun Denies itchy eyes and Denies wheezing Physical exam (Primary Care) Vital Signs: Last Vital Signs Temp 97.0 F 07/25/25 14:12 Pulse 108 H 07/25/25 14:12 BP 112/82 07/25/25 14:12 Pulse Ox 96 07/25/25 14:12 Oxygen Delivery Method Room Air 07/25/25 14:12 BMI result Body Mass Index 33.2 Tobacco/Smoking Status: Tobacco use Status Tobacco use date assessed 07/25/25 07/25/25 14:17 Patient Tobacco Use Status Current everyday Tobacco 07/25/25 14:17 Tobacco use type Cigarette 07/25/25 14:17 e-Cigarette/Vaping Use Never Used 07/25/25 14:17 PHQ-9: PHQ-9 Score PHQ-9: Total score 12 07/25/25 14:26 Depression Screening Interpretation: Positive Depression Screening Follow-up: Existing condition and In treatment Thrive Assessment: Date of Thrive Assessment Date Thrive assessed 07/25/25 07/25/25 14:17 Currently or been in a relationship where the following occur: No concerns reported Const General: no acute distress and alert Orientation/consciousness: patient oriented x3 HENMT Head: Yes normocephalic and Yes atraumatic Ears: TM's normal bilaterally and EAC's normal General nose exam: No nasal discharge present Face and sinus: Yes normal facial exam and Yes sinuses nontender Teeth and gingiva: dentition normal Throat: Yes posterior oropharynx normal and Yes tonsils normal (no TP congestion) Eyes Eyelids: Yes eyelids normal Conjunctivae: conjunctivae normal Pupils: Equal, round and reactive pupils present EOM: EOMs intact bilaterally Neck Neck: Yes supple and No lymphadenopathy Thyroid: Thyroid normal Resp Auscultation: clear to auscultation bilaterally, no crackles, no rales and no wheezes Cardio Rate: regular rate Rhythm: regular rhythm Heart sounds: no murmurs GI Palpation (GI): Soft to palpation, nontender and No hepatosplenomegaly present Auscultation: normal bowel sounds General: Yes no CVA tenderness Back/Spine/Pelvis Other: (+) diffuse tenderness on palpation over the entire back, including over the trapezius muscles bilaterally and over both scapular areas Back: no CVA tenderness and back tenderness Cervical Spine: cervical muscular tenderness Thoracic/Lumbar Spine: paraspinal muscle tenderness bilaterally in the upper thoracic, in the mid thoracic, in the lower thoracic, in the upper lumbar, in the mid lumbar and in the lower lumbar and lumbar spinal tenderness Skin Lesions: no lesions Rashes: no rashes Neuro General: patient oriented x3, moves all extremities, no focal motor deficits and CN's II-XI intact bilaterally Cranial nerves: Yes Equal, round and reactive pupils present Cognition (Neuro): normal cognition Gait exam (Neuro): Normal gait present Extrem General: Yes no clubbing, cyanosis or edema Right upper extremity: Extremity exam: right hand Details: normal to inspection, tenderness and no swelling Left upper extremity: hand Details: normal to inspection, tenderness and no swelling Coding Level of Care Code Est Pt Prev Care 40-64y([id number]) Diagnoses Annual physical exam Z00.00 Pure hypercholesterolemia E78.00 Moderate persistent asthma without complication J45.40 Asthma severity: moderate Asthma persistence: persistent Asthma complication type: uncomplicated GERD without esophagitis K21.9 Fibromyalgia M79.7 Migraine without status migrainosus, not intractable, unspecified migraine type G43.909 Migraine type: unspecified Status migrainosus presence: without status migrainosus Intractability: not intractable Allergic rhinitis, unspecified seasonality, unspecified trigger J30.9 Allergic rhinitis trigger: unspecified Allergic rhinitis seasonality: unspecified Insomnia, unspecified type G47.00 Insomnia type: unspecified Anxiety F41.9 Episode of recurrent major depressive disorder, unspecified depression episode severity F33.9 Depression Type: major depressive disorder Major depression recurrence: recurrent Active/Remission status: currently active Major depression episode severity: unspecified Obesity (BMI 30-39.9) E66.9 Colon cancer screening Z12.11 Cervical cancer screening Z12.4 Breast cancer screening by mammogram Z12.31 Osteoporosis screening Z13.820 Additional Codes WESLY-7 Assessment Billing - WESLY-7 Assessment Tool: WESLY-7 Assessment 34537 ([id number]) PHQ-9 - 76563 - PHQ-9 Billing: Yes ([id number]) Assessment & Plan Assessment & Plan (1) Annual physical exam: Code(s): Z00.00 - Encounter for general adult medical examination without abnormal findings Category: Medical Plan: Check labs - patient is advised to try to get these done JAMES to complete her annual exam as she has not had any follow up labs done since 2022 (2) Pure hypercholesterolemia: Code(s): E78.00 - Pure hypercholesterolemia, unspecified Category: Medical Plan: Reinforced low-cholesterol diet Continue atorvastatin 10 mg QD Will check patient's cholesterol levels JAMES for follow up - she has not had any follow up labs done in a couple of years (3) Asthma: Code(s): J45.909 - Unspecified asthma, uncomplicated Category: Medical Qualifiers: Asthma severity: moderate Asthma persistence: persistent Asthma complication type: uncomplicated Qualified Code(s): J45.40 - Moderate persistent asthma, uncomplicated Plan: Continue Symbicort 160-4.5 mcg 2 inhalations BID and Albuterol HFA 2 inhalations every 6 hours as needed She was also doing well on Xolair injections previously Follow up with pulmonary at [facility] as scheduled (4) GERD without esophagitis: Code(s): K21.9 - Gastro-esophageal reflux disease without esophagitis Category: Medical Plan: Dietary restrictions reinforced Continue Pantoprazole 40 mg QD and Sucralfate 1 gm QID (5) Fibromyalgia: Code(s): M79.7 - Fibromyalgia Category: Medical Plan: Patient has been advised that her chronic pain is most likely due to her fibromyalgia and that exercising regularly can help manage her pain better She is advised to continue on her current medications including Cyclobenzaprine, Meloxicam, Tramadol and Gabapentin She was seen by rheumatology for evaluation a couple of years ago and they concurred that her symptoms are mostly due to fibromyalgia and no additional recommendations were given at the time as she is already on the appropriate management and Rx (6) Migraine: Code(s): G43.909 - Migraine, unspecified, not intractable, without status migrainosus Category: Medical Qualifiers: Migraine type: unspecified Status migrainosus presence: without status migrainosus Intractability: not intractable Qualified Code(s): G43.909 - Migraine, unspecified, not intractable, without status migrainosus Plan: Stable on prophylactic Rx Continue Topiramate 25 mg Q HS (7) Allergic rhinitis: Code(s): J30.9 - Allergic rhinitis, unspecified Category: Medical Qualifiers: Allergic rhinitis trigger: unspecified Allergic rhinitis seasonality: unspecified Qualified Code(s): J30.9 - Allergic rhinitis, unspecified Plan: Continue Loratadine 10 mg QD PRN and Montelukast 10 mg Q PM (8) Insomnia: Code(s): G47.00 - Insomnia, unspecified Category: Medical Qualifiers: Insomnia type: unspecified Qualified Code(s): G47.00 - Insomnia, unspecified Plan: Sleep hygiene reinforced Continue Zolpidem 10 mg Q HS PRN Have discussed with her multiple times in the past that her trouble sleeping is likely tied in to her increased and significant anxiety and that she should be seeing psychiatry for management of these (9) Anxiety: Code(s): F41.9 - Anxiety disorder, unspecified Category: Medical Plan: Continue Hydroxyzine 25 mg TID PRN and Clonazepam 1 mg TID PRN Patient has been referred to psychiatry multiple times in the past but she has not followed through on any of these so far (10) Depression: Code(s): F32.A - Depression, unspecified Category: Medical Qualifiers: Depression Type: major depressive disorder Major depression recurrence: recurrent Active/Remission status: currently active Major depression episode severity: unspecified Qualified Code(s): F33.9 - Major depressive disorder, recurrent, unspecified Plan: Continue Bupropion 200 mg BID and Mirtazapine 7.5 mg Q HS (11) Obesity (BMI 30-39.9): Code(s): E66.9 - Obesity, unspecified Category: Medical Plan: Reinforced diet/exercise as tolerated/lose weight although patient has very little motivation to exercise due to her chronic fatigue (12) Colon cancer screening: Code(s): Z12.11 - Encounter for screening for malignant neoplasm of colon Category: Medical Plan: Will refer patient again to GI for her screening colonoscopy (13) Cervical cancer screening: Code(s): Z12.4 - Encounter for screening for malignant neoplasm of cervix Category: Medical Plan: Will patient to the [facility] for her yearly gynecology exam and pap smear (14) Breast cancer screening by mammogram: Code(s): Z12.31 - Encounter for screening mammogram for malignant neoplasm of breast Category: Medical Plan: Will send patient for her annual mammogram (15) Osteoporosis screening: Code(s): Z13.820 - Encounter for screening for osteoporosis Category: Medical Plan: Will send her for BMD for osteoporosis screening Plan Follow up in 4 months Orders: Orders Complete Blood Count Auto Diff 07/25/25 D64.9 - Anemia, unspecified, Z00.00 - Encounter for general adult medical examination without abnormal findings [facility]. Panel Fast 07/25/25 E78.00 - Pure hypercholesterolemia, unspecified, Z00.00 - Encounter for general adult medical examination without abnormal findings Lipid Panel 07/25/25 E78.00 - Pure hypercholesterolemia, unspecified, Z00.00 - Encounter for general adult medical examination without abnormal findings TSH reflex Free T4 07/25/25 E78.00 - Pure hypercholesterolemia, unspecified, Z00.00 - Encounter for general adult medical examination without abnormal findings Vitamin B12 and Folate 07/25/25 E53.8 - Deficiency of other specified B group vitamins, Z00.00 - Encounter for general adult medical examination without abnormal findings Rheumatoid Factor 07/25/25 Z00.00 - Encounter for general adult medical examination without abnormal findings Hemoglobin A1c 07/25/25 R73.9 - Hyperglycemia, unspecified MM tomosynthesis screening BI 07/25/25 Z12.31 - Encounter for screening mammogram for malignant neoplasm of breast XR DEXA axial skeleton 07/25/25 Z78.0 - Asymptomatic menopausal state UA CC w/rflx Micro + Cult 07/25/25 R30.0 - Dysuria, Z00.00 - Encounter for general adult medical examination without abnormal findings Vitamin D 25-OH Total 07/25/25 E55.9 - Vitamin D deficiency, unspecified, Z00.00 - Encounter for general adult medical examination without abnormal findings Erythrocyte Sedimentation Rate 07/25/25 M79.7 - Fibromyalgia, Z00.00 - Encounter for general adult medical examination without abnormal findings C Reactive Protein 07/25/25 M79.7 - Fibromyalgia, Z00.00 - Encounter for general adult medical examination without abnormal findings SHAUNA Reflex Titer and Pattern 07/25/25 Z00.00 - Encounter for general adult medical examination without abnormal findings Lyme IgG/IgM w/reflex to WB 07/25/25 M25.50 - Pain in unspecified joint, Z00.00 - Encounter for general adult medical examination without abnormal findings Referrals TEA BAG MACHINE TENDER Referral Z12.4 - Encounter for screening for malignant neoplasm of cervix Gastroenterology Referral R10.9 - Unspecified abdominal pain, Z12.11 - Encounter for screening for malignant neoplasm of colon
--- OUTSIDE RECORDS SUMMARY | 2025-07-25 14:55 | XMS_ITS | Patient Health Record ---
Author Organization [facility] Address [facility] [address] [place] [address] Care Team Providers Care Traffic Signal Supervisor Maintenance Name Role Phone FRANCHESCA MCCRARY Primary Care Provider [phone] Allergies No Known Allergies Reason For Referral No Information Social History Tobacco Use: Social History Observation Description Date Details (start date - stop date) Current Smoker NA - NA Social History Sexual History: Social Info Question Answer Notes Sexual History Had sex in the past 12 months (vaginal, oral, or anal)? No Drugs/Alcohol: Social Info Question Answer Notes Drugs Have you used drugs other than those for medical reasons in the past 12 months? No Drug/Alcohol: Social Info Question Answer Notes AUDIT-C (Standard) Did you have a drink containing alcohol in the past year? No Points 0 Interpretation Negative Carlos de Emergencia Social Info Question Answer Notes Historial Social Vivienda Con neil Sospecha de maltrato, violen darryl, u abuso sexual? No Viaje No viajo fuera de P.R. Inmunizacion al salty No Inmunizacion contra el tetano No Transfuciones componentes sanguineos No Declina ser transfundido No Modo de llegada Auto Acompanado por [place] [place] [employer] [place] Agente stephens numro de placa [id number] Tobacco Use: Social Info Question Answer Notes Tobacco Control (Standard) Tobacco use: Current smoker Plan Of Treatment No Information Medical (General) History Medical History History ICD Code fibromyalgia asthma Colesterol HBP
--- OUTSIDE RECORDS SUMMARY | 2025-07-25 14:55 | XMS_ITS | Clinical Summary ---
Author Organization [facility] Address [address] [place] [address] 7 [place] [address] Care Team Providers Care Medical Librarian Name Role Phone Unavailable Primary Care Provider [...] patient's age to complete this topic [place] [address] [place] [address] ([facility])
== END 2025-07-25 14:43 | disposition home or self-care (01) ==
LOC: HO.HMCH 14:11
PROVIDERS: PCP Internal Medicine; Visit Provider Internal Medicine
DX: Z00.00 Encounter for general adult medical examination without abnormal findings (principal); E78.00 Pure hypercholesterolemia, unspecified; E66.9 Obesity, unspecified; Z68.33 Body mass index [BMI] 33.0-33.9, adult; J45.40 Moderate persistent asthma, uncomplicated; K21.9 Gastro-esophageal reflux disease without esophagitis; M79.7 Fibromyalgia; G43.909 Migraine, unspecified, not intractable, without status migrainosus; J30.9 Allergic rhinitis, unspecified; G47.00 Insomnia, unspecified; F41.9 Anxiety disorder, unspecified; F33.9 Major depressive disorder, recurrent, unspecified

== ENCOUNTER → 2025-07-25 14:10 | Outpatient (BNVA) | payer OTHER, SELFPAY | PROVIDERS: PCP Internal Medicine; Visit Provider Internal Medicine | DX: Z00.00 Encounter for general adult medical examination without abnormal findings (principal); M79.7 Fibromyalgia; E78.00 Pure hypercholesterolemia, unspecified; J45.40 Moderate persistent asthma, uncomplicated; K21.9 Gastro-esophageal reflux disease without esophagitis; G43.909 Migraine, unspecified, not intractable, without status migrainosus; J30.9 Allergic rhinitis, unspecified; G47.00 Insomnia, unspecified; F41.9 Anxiety disorder, unspecified; F33.9 Major depressive disorder, recurrent, unspecified; E66.9 Obesity, unspecified; Z68.33 Body mass index [BMI] 33.0-33.9, adult | CPT/HCPCS: 96127; 99396 ==

== ENCOUNTER 2025-09-09 19:16 | Inpatient (IN) | payer OTHER, SELFPAY ==
--- NOTE | 2025-09-09 | ECG_ITS ---
Test Reason : CHEST PAIN Blood Pressure : */* mmHG Vent. Rate : 98 BPM Atrial Rate : 98 BPM P-R Int : 174 ms QRS Dur : 92 ms QT Int : 328 ms P-R-T Axes : 63 -2 28 degrees QTcB Int : 418 ms Normal sinus rhythm Normal ECG When compared with ECG of 13-Jan-2018 22:15, RI interval has decreased Referred By: Renetta Darling Electronically Signed By: Chris Richard
--- NOTE | ~2025-09-09 | CT_ITS ---
CLINICAL HISTORY: cp CT angiography chest with contrast. With MIP MPR Postprocessing. Comparison: No previous thoracic imaging available at this time. Comparison is made with 2023 CT of the abdomen given left adrenal lesion Findings: No central pulmonary embolism. No aortic dissection, accounting for artifacts. Mild cardiomegaly with trace pericardial effusion. Mediastinal and hilar lymph nodes are nonspecific and may be reactive. Mild-moderate mediastinal lipomatosis present. No pneumothorax or significant pleural effusion. Mild emphysematous changes and scarring including the imaged lung apices. Mild bibasilar atelectasis and pneumonitis accentuated by motion artifacts. Diffuse steatotic change of the imaged liver. Gallbladder is surgically absent. Imaged spleen is nonenlarged with in the imaged abdomen. 1.5 cm nodule of the left adrenal gland is not significantly changed compared to CT of the abdomen from 2022, and favored to represent lipid rich adenoma is measure fat density on the comparison CT. Mild volume loss of the imaged pancreas. Degenerative changes include imaged right shoulder and right AC joint. IMPRESSION: 1. No central pulmonary embolism. 2. No aortic dissection. 3. Mild bibasilar atelectasis/pneumonitis. This document has been electronically signed by: Wade Terrell MD on 09/09/2025 23:48:02
--- NOTE | ~2025-09-09 | CT_ITS ---
CLINICAL HISTORY: ams CT head without contrast Comparison: None provided Findings: No acute intracranial hemorrhage, accounting for motion artifacts. No midline shift or hydrocephalus. No defined large arterial territorial infarction by CT with motion artifacts. No acute appearing or suspicious air-fluid levels of the imaged paranasal sinuses. Vascular calcifications noted. Imaged mastoid air cells are well aerated. No acute skull fracture, accounting for motion artifacts. Dermal scalp calcifications are multifocal. IMPRESSION: No acute intracranial abnormality by CT, accounting for artifacts. This document has been electronically signed by: Wade Terrell MD on 09/09/2025 22:03:32
--- NOTE | ~2025-09-09 | MR_ITS ---
EXAMINATION: MR BRAIN WITHOUT AND WITH CONTRAST CLINICAL INFORMATION: Seizure. COMPARISON: August 08, 2008 TECHNIQUE: Multiplanar, multisequence MRI of the brain was obtained before and after the intravenous administration of 7.5 mL gadolinium based (Gadavist) without reported immediate complications. FINDINGS: Patient's motion artifact. No restricted diffusion. No acute intracranial hemorrhage, mass effect, midline shift, hydrocephalus or herniation. Zhao-white matter differentiation is normal. Sellar/suprasellar region demonstrated no signal abnormality or masses. Posterior cranial fossa contents demonstrated no signal abnormality or masses. Normal position of the cerebellar tonsils. Flow-void signal within the main cerebral vessels is normal. Mild prominence of the extra-axial CSF spaces in the bifrontal and to a lesser extent bitemporal lobes. No signal abnormality or volume loss in the hippocampi. Dominant left vertebral artery. No abnormal enhancing lesion within the intra-axial or the extra-axial compartment of the cranium. MR/MR head/brain wo/w con IMPRESSION: No acute brain abnormality. No abnormal enhancement. Mild atrophy, bifrontal/bitemporal lobes. Electronically signed by: Chris Martins MD 09/11/2025 12:55 PM EDT
[2025-09-09 19:24] VITALS: BP 142/87; PULSE 110; O2SAT 97
[2025-09-09 19:29] VITALS: PULSE 100; RESP 22; TEMP 36.8; O2SAT 92; BMI 29.4
--- NOTE | 2025-09-09 19:33 | PC.NURSE ---
Zenon Decker [phone] Passenger who was in the car with her during the event
[2025-09-09 19:50] LABS: Glucose, Whole Blood 123 mg/dL (60-115)
[2025-09-09 20:03] LABS: MANUAL DIFF FLAG NO
[2025-09-09 20:04] LABS: Hematocrit 40.9 % (37.0-47.0); Hemoglobin 13.7 g/dl (12.0-16.0); Imm Gran Abs Auto 0.07 X10*3/uL (0.00-0.03); Imm Gran Pct Auto 0.6 % (0.0-0.4); Lymphocytes Absolute Auto 1.7 X10*3/uL (1.2-4.9); Mean Corpuscular HGB Conc 33.5 g/dl (31.0-35.0); Mean Corpuscular Hemoglobin 30.6 pg (27.0-33.0); Mean Corpuscular Volume 91.3 fL (80.0-98.0); NRBC Abs Auto 0.000 X10*3/uL (0.0-0.012); NRBC Pct Auto 0.0 /100WBC (0.0-0.2); Platelet Count 325 X10*3/uL (160-400); Red Blood Count 4.48 X10*6/uL (4.20-5.50); White Blood Count 11.3 X10*3/uL (4.8-10.8)
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
[2025-09-09 20:17] LABS: Acetaminophen LAB < 3 mcg/mL (<30); Alanine Aminotransferase 33 U/L (0-31); Albumin Level 4.4 g/dL (3.5-5.0); Alkaline Phosphatase 112 U/L (39-117); Anion Gap 13 (12-20); Aspartate Amino Transferase 38 U/L (5-31); Blood Urea Nitrogen 7 mg/dL (9-16); Calcium 9.7 mg/dL (8.4-10.2); Carbon Dioxide 24 mmol/L (22-29); Chloride 108 mmol/L (96-108); Creatinine Clr Calc Pharmacy 78.3; Estimated Glomerular Filt Rate > 60; Potassium 3.9 mmol/L (3.3-5.1); Salicylate < 5.0 mg/dL (15-30); Sodium 141 mmol/L (135-145); Total Protein 8.2 g/dL (6.5-8.0)
[2025-09-09 20:24] LABS: INTERNATIONAL NORM RATIO 1.1 (0.9-1.1); Prothrombin Time 12.7 SEC (10.9-12.4); Troponin-I High Sensitivity < 2.7 ng/L (<3.5-17.0)
[2025-09-09 20:38] VITALS: BP 145/80; PULSE 93; RESP 18; TEMP 36.8; O2SAT 96
--- OUTSIDE RECORDS SUMMARY | 2025-09-09 20:49 | XMS_ITS | Clinical Summary ---
Author Organization [employer] Address [address] [place] [address] 7 [place] [address] Care Team Providers Care Building Analyst/Supervisor Name Role Phone Unavailable Primary Care Provider [...] of 2) 2017 COVID-19 Vaccine (4 - 2024-2 6 season) 2025 01/18/2023, 08/26/2021, 08/05/2021 Influenza Vaccine (#1) 2025 [...] patient's age to complete this topic [place] [address] [id number] ([facility])
--- OUTSIDE RECORDS SUMMARY | 2025-09-09 20:49 | XMS_ITS | Patient Health Record ---
Author Organization [facility] Address [facility] [address] [place] [address] Care Team Providers Care Combination Technician Name Role Phone FRANCHESCA MCCRARY Primary Care Provider [phone] Allergies No Known Allergies Reason For [...] llegada Auto [employer] [place] [address] [id number] Tobacco Use: Social Info Question Answer Notes Tobacco Control (Standard) Tobacco use: Current smoker Plan Of Treatment No Information Medical (General) History Medical History History ICD Code fibromyalgia asthma Colesterol HBP
[2025-09-09 21:20] LABS: D Dimer High Sensitivity 1813 NG/ML
[2025-09-09] MEDS: iohexoL 350 MG/ML 100 ML INFUS..BTL 65 ML IV (22:54)
[2025-09-09 23:52] LABS: Appearance Urine Clear; Glucose Urine UA Negative (Negative); PH 6.0 (5.0-9.0); Specific Gravity - Urine >= 1.030 (1.005-1.025)
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
[2025-09-10 00:24] LABS: Cannabinoid Screen Urine Not Detected (Not Detect)
--- NOTE | 2025-09-10 00:28 | P.HPHOSP_ITS ---
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 Patient is a 59-year-old female Martiniquais-speaking only with past medical history the stroke (patient unclear if she was actually diagnosed in the past), migraine, tobacco dependence 10-15 cigarettes per day, asthma/COPD, ,hernia, depression, fibromyalgia, GERD, anxiety/depression on diagnosed was BIBA after her friend who was driving with her called 911 because patient experienced an alteration in mental status while driving. , per friend patient had a blank stare and started producing saliva somewhat foamy at the mouth leaning towards the left side unable to control the car. Friend had to take control of the car to help them get to the side of the road and at that point the friend turned off the car and remove the keys. Patient was breathing, unable to speak initially but then question why they stopped and pulled over because patient continued to try to drive away. Patient's affect of the time for per EMS was flat with minimal episodes of fluidity. Patient can not recall the events that occurred earlier. Patient had received 5 mg of IM Versed from EMS. Since arrival to the ED there has been no altered mental status or any seizure activity. Patient very emotional often times crying when referring to her grandson's and sons that of past. Patient also tearful because her son is currently in the hospital for depression. There was no evidence of hypoglycemia via EMS or labs done in the ED. Head CT was negative for any acute findings, but motion artifact was present. Chest CT was negative for PE, aortic dissection but did note mild bibasilar atelectasis and pneumonitis noting that patient is a active smoker. Patient had a mild leukocytosis of 11.3, no anemia or evidence of active bleeding. Electrolytes were stable, AST 38, ALT 33. Glucose 128. Magnesium and TSH are pending. Patient is started on Keppra and placed on seizure precautions. Patient did express profound depression but is not suicidal. Psychiatric consultation placed. Neurological consultation placed for follow-up. Neuro exam reassuring on admission. Review of Systems 2 Review of Systems: Patient denies any chest pain, abdominal pain but states her appetite is fair usually most days. Patient feels depressed but not suicidal. Pt is not having any shortness of breath. Patient denies any recent falls, seizure history, headaches or recent migraine activity. Yes all other systems are reviewed and are negative [facility] Medical History Migraine Pure hypercholesterolemia LISA (obstructive sleep apnea) Obesity (BMI 30-39.9) Depression Allergic rhinitis GERD without esophagitis Seborrhea capitis Fibromyalgia Asthma Smoker Frequent falls Right knee pain Insomnia Anxiety Cognitive capacity: Currently alert and orientated x3 Functional capacity: independent ambulation Patient : No Family History Father Medical history unknown Mother Hypertension CVD (cardiovascular disease) Depression Surgical History History of surgery History of tubal ligation History of cholecystectomy History of bilateral breast reduction surgery Social History Housing: House Alcohol intake: never Patient Tobacco Use Status: Current everyday Tobacco user Tobacco use type: Cigarette Cigarettes Per Day: 7 e-Cigarette/Vaping Use: Never Used Second Hand Smoke Exposure: Yes Advance Directives: No Advance Directives Information Provided: No Patient : No service: No Current occupational status: disabled Cognitive needs: No Hearing needs: No Vision needs: Yes Ebola Risk: Travel/Contact With Anyone From Affected Area/s: No Has Patient Experienced Ebola Symptoms: No Meds Allergies Allergy/AdvReac Type Severity Reaction Status Date / Time FRUIT Allergy Severe HIVES Uncoded 09/09/25 19:30 Active Medications: Current Medications Acetaminophen (Acetaminophen 325 Mg Tablet) 650 mg PO Q6H PRN PRN Reason: Pain, Mild 1-3,fever,headache Albuterol/Ipratropium (Albuterol/Iprat 2.5/0.5mg 3 Ml Ampul.Neb) 3 ml INHALE Q4H PRN PRN Reason: Shortness of Breath/Wheezing Calcium Carbonate (Calcium Carbonate 750 Mg Tab.Chew) 750 mg PO Q4H PRN PRN Reason: Heartburn Enoxaparin Sodium (Enoxaparin Sodium 40 Mg/0.4 Ml Syringe) 40 mg SUBCUT Q24H CLARIBEL Magnesium Hydroxide (Milk Of Magnesia 30 Ml Oral.Susp) 30 ml PO DAILY PRN PRN Reason: Constipation Melatonin (Melatonin 3 Mg Tablet) 6 mg PO BEDTIME PRN PRN Reason: Insomnia Polyethylene Glycol (Polyethylene Glycol 3350 17 Gm Powd.Pack) 17 gm PO DAILY PRN PRN Reason: Constipation Senna (Sennosides 8.6 Mg Tablet) 17.2 mg PO BEDTIME CLARIBEL Sodium Chloride (0.9 % Sodium Chloride Flush 3 Ml Syringe) 3 ml IVFLUSH QSHIFT CLARIBEL Home Medications ?Medication ?Instructions ?Recorded ?Confirmed ?Last Taken ?Type miscellaneous medical supply ea miscellaneous 05/27/22 07/27/25 Unknown History Physical Exam 2 Vital Signs and Narrative: Vital Signs: Last Vital Signs Temp 98.2 F 09/09/25 20:38 Pulse 93 09/09/25 20:38 Resp 18 09/09/25 20:38 BP 145/80 H 09/09/25 20:38 Pulse Ox 96 09/09/25 20:38 O2 Del Method Room Air 09/09/25 20:38 BMI result Body Mass Index 29.4 ALERT AND ORIENTATED X3, able to follow command, poor historian NEURO: CN II-X11 INTACT, NO DEFICITS, VISUAL ACUITY INTACT EYES: PERRLA, EOM INTACT, sclerae nonicteric, conjunctiva pink ENT: HEARING INTACT, NO ISSUES WITH SWALLOWING, UVULA MIDLINE, LIPS MOIST, NARES PATENT NO EPISTAXIS, tongue intact without laceration CARDIAC: S1 S2 RRR, NO MURMUR, NO JVD, NO EDEMA IN LOWER EXT PULMONARY: LUNgs diminished at the base ABDOMINAL: BS ACTIVE IN ALL 4 QUADRANTS, NO GUARDING, TENDERNESS, REBOUNDING MSK: STRENGTH 5/5 UPPER AND LOWER EXTREMITIES : NO CVA TENDERNESS NO BLADDER DISTENSION EXTREMITIES: NO EDEMA IN LOWER EXTREMITIES, PT AND DP PULSES PALPABLE +2 PSYCH: MOOD depressed, JUDGEMENT AND INSIGHT fair Skin: No new rashes or lesions Results Labs 09/09/25 19:59 09/09/25 19:59 Labs: Laboratory Results - last 24 hr 09/09/25 09/09/25 09/09/25 19:30 19:59 20:28 MCV 91.3 MCH 30.6 MCHC 33.5 RDW 13.0 Plt Count 325 MPV 10.2 Immature Gran % (Auto) 0.6 H Neut % (Auto) 79.4 H Lymph % (Auto) 15.1 L Towner % (Auto) 4.3 Eos % (Auto) 0.2 Baso % (Auto) 0.4 Lymph # (Auto) 1.7 Towner # (Auto) 0.5 Eos # (Auto) 0.0 Baso # (Auto) 0.0 Abs Immat Gran (auto) 0.07 H Absolute Neuts (auto) 9.0 H Absolute Nucleated RBC 0.000 Nucleated RBC % (auto) 0.0 PT 12.7 H INR 1.1 D-Dimer High Sensitivty 1813 Anion Gap 13 Estim Creat Clear Calc 78.3 Estimated GFR > 60 POC Glucose 123 H Random Glucose 128 H Calcium 9.7 Total Bilirubin 0.3 AST 38 H ALT 33 H Alkaline Phosphatase 112 Troponin I High Sens < 2.7 Total Protein 8.2 H Albumin 4.4 Urine Color Urine Appearance Urine pH Ur Specific [place] Urine Protein Urine Glucose (UA) Urine Ketones Urine Blood Urine Nitrite Ur Leukocyte Esterase Urine RBC Urine WBC Ur Squamous Epith Cells Urine Bacteria Hyaline Casts Salicylates < 5.0 L Urine Opiates Screen Ur Buprenorphine Scrn Ur Oxycodone Screen Urine Methadone Screen Urine Fentanyl Screen Acetaminophen < 3 Ur Barbiturates Screen Ur Phencyclidine Scrn Ur Amphetamines Screen U Benzodiazepines Scrn Urine Cocaine Screen U Marijuana (THC) Screen Ethyl Alcohol 11 09/09/25 23:42 MCV MCH MCHC RDW Plt Count MPV Immature Gran % (Auto) Neut % (Auto) Lymph % (Auto) Towner % (Auto) Eos % (Auto) Baso % (Auto) Lymph # (Auto) [place] # (Auto) Eos # (Auto) Baso # (Auto) Abs Immat Gran (auto) Absolute Neuts (auto) Absolute Nucleated RBC Nucleated RBC % (auto) PT INR D-Dimer High Sensitivty Anion Gap Estim Creat Clear Calc Estimated GFR POC Glucose Random Glucose Calcium Total Bilirubin AST ALT Alkaline Phosphatase Troponin I High Sens Total Protein Albumin Urine Color Yellow Urine Appearance Clear Urine pH 6.0 Ur Specific [place] >= 1.030 H Urine Protein Trace Urine Glucose (UA) Negative Urine Ketones Negative Urine Blood Negative Urine Nitrite Negative Ur Leukocyte Esterase Negative Urine RBC 0-2 Urine WBC 0-5 Ur Squamous Epith Cells 3-5 Urine Bacteria 1+ Hyaline Casts 0-2 Salicylates Urine Opiates Screen Not Detected Ur Buprenorphine Scrn Not Detected Ur Oxycodone Screen Not Detected Urine Methadone Screen Not Detected Urine Fentanyl Screen Not Detected Acetaminophen Ur Barbiturates Screen Not Detected Ur Phencyclidine Scrn Not Detected Ur Amphetamines Screen Not Detected U Benzodiazepines Scrn POSITIVE H Urine Cocaine Screen Not Detected U Marijuana (THC) Screen Not Detected Ethyl Alcohol ECG Attestation: I personally reviewed and interpreted this ECG as follows: (Normal sinus rhythm QTC 418) Prior ECG tracings: available for review Imaging Radiologist's Impressions: CT HEAD Findings: No acute intracranial hemorrhage, accounting for motion artifacts. No midline shift or hydrocephalus. No defined large arterial territorial infarction by CT with motion artifacts. No acute appearing or suspicious air-fluid levels of the imaged paranasal sinuses. Vascular calcifications noted. Imaged mastoid air cells are well aerated. No acute skull fracture, accounting for motion artifacts. Dermal scalp calcifications are multifocal. IMPRESSION: No acute intracranial abnormality by CT, accounting for artifacts. CT CHEST Findings: No central pulmonary embolism. No aortic dissection, accounting for artifacts. Mild cardiomegaly with trace pericardial effusion. Mediastinal and hilar lymph nodes are nonspecific and may be reactive. Mild-moderate mediastinal lipomatosis present. No pneumothorax or significant pleural effusion. Mild emphysematous changes and scarring including the imaged lung apices. Mild bibasilar atelectasis and pneumonitis accentuated by motion artifacts. Diffuse steatotic change of the imaged liver. Gallbladder is surgically absent. Imaged spleen is nonenlarged with in the imaged abdomen. 1.5 cm nodule of the left adrenal gland is not significantly changed compared to CT of the abdomen from 2022, and favored to represent lipid rich adenoma is measure fat density on the comparison CT. Mild volume loss of the imaged pancreas. Degenerative changes include imaged right shoulder and right AC joint. IMPRESSION: 1. No central pulmonary embolism. 2. No aortic dissection. 3. Mild bibasilar atelectasis/pneumonitis. 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 Patient is a 59-year-old female Martiniquais-speaking only with past medical history the stroke (patient unclear if she was actually diagnosed in the past), migraine, tobacco dependence 10-15 cigarettes per day, asthma/COPD, ,hernia, depression, fibromyalgia, GERD, anxiety/depression on diagnosed was BIBA after her friend who was driving with her called 911 because patient experienced an alteration in mental status while driving. , per friend patient had a blank stare and started producing saliva somewhat foamy at the mouth leaning towards the left side unable to control the car. Patient denies history of seizure but events do appear to resemble a possible seizure that occurred while patient was driving. Altered mental status, possible seizure witnessed less likely syncope Neuro exam reassuring at this time CT of the head negative for any acute finding Neurology consulted May require MRI in the a.m., EEG testing Telemetry continue Patient is started on Keppra Seizure precautions in place No evidence of hypoglycemia Orthostatics QS X3 ECho ordered Elevated Ddimer CTA negative for PE Severe depression/anxiety Psychiatry consulted Patient experiencing significant depression often tearful, relating to the loss of her grandson's and son's and the fact that her son is in the hospital for depression Requesting consultation with Psychiatry Patient denies any suicide ideations or hallucinations Currently 1:1 not indicated COPD/asthma/tobacco dependent Duo nebs p.r.n. Patient currently on room air Deferred nicotine replacement therapy at this time Incentive spirometry ordered Hyperlipidemia Continue atorvastatin Cardiac diet Fibromyalgia Continue gabapentin, tramadol once med rec is completed DVT prophylaxis: Lovenox Med rec pending Full code status Quality Stroke Does the patient have a stroke diagnosis?: No Reason for No Anti-thrombotic by Day Two: N/A - Med Ordered VTE Prior VTE?: No VTE Risk Level:: Medical - moderate - high VTE Device Contraindication: N/A - Device Ordered VTE Drug Contraindication: N/A - Med Ordered
[2025-09-10 01:47] LABS: Magnesium 2.1 mg/dL (1.6-2.6)
[2025-09-10] MEDS: levETIRAcetam in NaCl (iso-os) 1,000 MG/100 ML PIGGYBACK 400 MG IV (02:42)
[2025-09-10 03:27] VITALS: BP 136/79; PULSE 89; RESP 12; TEMP 36.9; O2SAT 96
[2025-09-10 04:21] LABS: MANUAL DIFF FLAG NO
[2025-09-10 04:26] LABS: Hematocrit 36.0 % (37.0-47.0); Hemoglobin 12.1 g/dl (12.0-16.0); Imm Gran Abs Auto 0.05 X10*3/uL (0.00-0.03); Imm Gran Pct Auto 0.4 % (0.0-0.4); Lymphocytes Absolute Auto 3.0 X10*3/uL (1.2-4.9); Mean Corpuscular HGB Conc 33.6 g/dl (31.0-35.0); Mean Corpuscular Hemoglobin 30.3 pg (27.0-33.0); Mean Corpuscular Volume 90.0 fL (80.0-98.0); NRBC Abs Auto 0.000 X10*3/uL (0.0-0.012); NRBC Pct Auto 0.0 /100WBC (0.0-0.2); Platelet Count 292 X10*3/uL (160-400); Red Blood Count 4.00 X10*6/uL (4.20-5.50); White Blood Count 13.5 X10*3/uL (4.8-10.8)
[2025-09-10 04:49] LABS: Albumin Level 4.0 g/dL (3.5-5.0); Alkaline Phosphatase 103 U/L (39-117); Anion Gap 14 (12-20); Aspartate Amino Transferase 37 U/L (5-31); Blood Urea Nitrogen 7 mg/dL (9-16); Calcium 9.2 mg/dL (8.4-10.2); Carbon Dioxide 21 mmol/L (22-29); Chloride 107 mmol/L (96-108); Cholesterol 187 mg/dL (<200); Creatinine Clr Calc Pharmacy 97.2; Estimated Glomerular Filt Rate > 60; HDL Cholesterol 43 mg/dL (>40); Potassium 3.5 mmol/L (3.3-5.1); Sodium 138 mmol/L (135-145); Total Protein 7.6 g/dL (6.5-8.0); Triglycerides 73 mg/dL (<150)
[2025-09-10 05:01] LABS: Alanine Aminotransferase 31 U/L (0-31)
[2025-09-10 05:43] LABS: Hemoglobin A1C 121.3681 umol/L; Total Hemoglobin (HGBA1C) 3129.0153 umol/L
--- NOTE | 2025-09-10 06:14 | PM.EVENT ---
Event Note Date of Service: 09/10/25 Event Note: Pt has an increasing leukocytosis, noted pneumonitis, no fever but starting pt on Z pack empirically for now. UA neg for UTI. Time Spent With Patient Time: Total time managing care of this patient today ____ minutes.
--- NOTE | 2025-09-10 07:00 | CA_ITS ---
Transthoracic Echocardiogram Patient (Last, First, Middle): Clara Santana, Gender: Female Date of : 1965 Age: 59 Procedure Date: 09/10/2025 Procedure Type: Transthoracic Echocardiogram Location: ER Height: 160.02 cm Weight: 75.3 kg BSA: 1.79 m2 Heart Rate: bpm BP: 119 / 64 mmHg Nursing Care Partner: TO Referring MD: Karissa Morin VP [employer] Symptoms: syncope Study Quality: Fair/Contrast Conclusions: - Normal left ventricular size, thickness, systolic function, and wall motion. The visually estimated ejection fraction is between 60-65%. Diastolic function is normal for age. - Normal right ventricular cavity size and systolic function. Findings Procedure Information Contrast agent, definity, is being given per protocol without apparent complications. The study quality is limited by the patients inability to tolerate the test. Left Ventricle Normal left ventricular size, thickness, systolic function, and wall motion. The visually estimated ejection fraction is between 60-65%. Diastolic function is normal for age. Right Ventricle Normal right ventricular cavity size and systolic function. Atria The left atrium is normal in size. The right atrium is normal in size. Aortic Valve Normal aortic valve structure and function. There is no aortic valve stenosis. There is no aortic valve regurgitation. Mitral Valve Normal mitral valve structure and function. There is no mitral valve regurgitation. There is no mitral valve stenosis. Pulmonic Valve The pulmonic valve is likely normal. Tricuspid Valve Normal tricuspid valve structure. There is no tricuspid valve regurgitation. Normal right atrial pressure. There is no evidence of pulmonary hypertension. Great Vessels All visible segments of the aorta are normal in size. The visualized portions of the pulmonary artery and branches are normal. Venous The inferior vena cava is normal in size and collapses greater than 50% with inspiration. Pericardium/Pleural Prominent epicardial adipose tissue noted. There is no evidence of pericardial effusion. Prior Study Comparison No prior study available for comparison. Measurements 2D Linear Measurements IVSd: 0.78 0.6-0.9/0.6-1.0 cm LVIDd: 3.75 3.9-5.3/4.2-5.9 cm LVIDd Index: 2.09 2.4-3.2/2.2-3.1 cm/m2 LVIDs: 2.49 2.0-3.6 cm LVPWd: 0.72 0.7-1.1 cm LA Diam: 2.90 2.7-3.8/3.0-4.0 cm LAIDs Index: 1.62 1.5-2.3 cm/m2 LV Mass: 95.91 67-162/88-224 g LV Mass Index: 53.58 43-95/49-115 g/m2 LVOT Diam: 2.00 3.0+(-)1.3 cm 2D Systolic Function EF 4C: 66.20 >55% Mitral Valve MV Pk E: 0.77 MV PK A: 0.54 MV Decel Time: 214.00 E/A: 1.40 E'Lateral: 9.57 E'Medial: 6.96 E/E' Med: 11.00 E/E' Lat: 8.00 PHT: 63.00 MVA PHT: 3.49 Decel [place]: 3.59 Aortic Valve AoV Pk Ravin: 1.28 AoV Mn Ravin: 0.76 AoV VTI: 0.27 AoV Pk Grad: 7.00 Aov Mn Grad: 3.00 NYASIA Cont.VTI: 2.12 LVOT LVOT Pk Ravin: 0.90 LVOT Mn Ravin: 0.53 LVOT VTI: 0.18 LVOT Pk Grad: 3.00 LVOT Mn Grad: 1.00 LVOT Diam: 2.00 LVOT Area: 3.14 Diastolic Function MV Pk E: 0.77 MV Pk A: 0.54 E/A: 1.40 E'Medial: 6.96 E/E' Med: 11.00 E' Laterial: 9.57 E/E' Lat: 8.00 Right Ventricle TAPSE (mm): 21.90 TVS' Ravin: 9.25 Tricuspid Valve TR Pk Ravin: 2.32 TR Pk Grad: 22.00 Great Vessels Aorta Sinus of Valsalva: 2.79 2.0-3.5 cm Ao Asc: 2.50 2.1-3.4 cm Updated in Other Vendor System with Status of Final Chris Richard MD electronically signed on 09/11/2025 7:48:58 PM with status of Final
[2025-09-10] MEDS: 0.9 % Sodium Chloride Flush 3 ML SYRINGE IVFLUSH ×3 (07:28→22:14)
[2025-09-10 07:31] VITALS: BP 128/64; PULSE 69; RESP 15; TEMP 36.9; O2SAT 97
--- NOTE | 2025-09-10 08:43 | ECG_ITS ---
Test Reason : n/v Blood Pressure : */* mmHG Vent. Rate : 62 BPM Atrial Rate : 62 BPM P-R Int : 188 ms QRS Dur : 94 ms QT Int : 394 ms P-R-T Axes : 48 5 26 degrees QTcB Int : 399 ms Normal sinus rhythm Incomplete right bundle branch block Borderline ECG When compared with ECG of 09-Sep-2025 19:42, Vent. rate has decreased by 36 bpm Referred By: Sosa Rivera Electronically Signed By: Chris Ricahrd
[2025-09-10 12:38] VITALS: BP 116/94; PULSE 59; TEMP 36.7; O2SAT 97
--- NOTE | 2025-09-10 13:23 | MHC.CM.PN ---
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 Pt. lives with her son, but said that he is in [place] right now. She does not use home health services or DME. She confirmed that her PCP is Dr. Wallace, her friend, is [facility] [phone], and she said her sister can transport her home at [place]. Pt. is asking a lot of questions, reviewing how she came to be here, saying she cannot talk, is confused. Her nurse was there to answer questions and said she will ask the doctor to come see her. CM to follow for DC needs.
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
[2025-09-10 16:48] VITALS: BP 122/65; PULSE 63; RESP 16; TEMP 36.6; O2SAT 99
--- NOTE | 2025-09-10 16:50 | PC.NURSE ---
EEG at bedside. Pt with multiple complaints. notified. came and examined pt. Neuro intact. NAD noted
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
[2025-09-10 18:14] VITALS: BP 138/68; PULSE 78; RESP 18; TEMP 36.4; O2SAT 98
--- NOTE | 2025-09-10 18:36 | PHA.MEDREC ---
Pharmacy Consult ? Medication Reconciliation Pharmacy has completed the medication reconciliation. Spoke to patient via acute care physical therapist to confirm medication list. Patient said she is on a lot of medications and doesn't remember all of them, only able to confirm some. Med rec was done by talking to patient, medical record (visit with Dr. Lane back in June) and pharmacy claims. Patient doesn't remember when was the last time she took her medications (said she had a stroke yesterday).
[2025-09-10 23:48] LABS: Glucose, Whole Blood 97 mg/dL (60-115)
[2025-09-11] VITALS (8 sets, daily range): BP systolic 99–139; BP diastolic 53–91; PULSE 54–110; RESP 16–18; TEMP 36.2–37; O2SAT 93–95
[2025-09-11 07:28] LABS: Hematocrit 39.0 % (37.0-47.0); Hemoglobin 13.0 g/dl (12.0-16.0); Mean Corpuscular HGB Conc 33.3 g/dl (31.0-35.0); Mean Corpuscular Hemoglobin 30.4 pg (27.0-33.0); Mean Corpuscular Volume 91.3 fL (80.0-98.0); NRBC Abs Auto 0.000 X10*3/uL (0.0-0.012); NRBC Pct Auto 0.0 /100WBC (0.0-0.2); Platelet Count 273 X10*3/uL (160-400); Red Blood Count 4.27 X10*6/uL (4.20-5.50); White Blood Count 9.9 X10*3/uL (4.8-10.8)
[2025-09-11] MEDS: 0.9 % Sodium Chloride Flush 3 ML SYRINGE IVFLUSH (08:49)
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
--- NOTE | 2025-09-11 15:10 | P.DS_ITS ---
DS: Providers Provider Date of Service: 09/11/25 Date of admission: 09/09/25 23:53 Date of discharge: 09/11/25 Primary care physician: Branden Lane MD Consults: 09/10/25 00:20 Consult to Neurology Routine Consulting Provider: [facility] Reason for consultation: possible seizure while driving Has provider been notified: No DS: Diagnosis Discharge Diagnosis (1) Anxiety: Status: Acute (2) AMS (altered mental status): Status: Acute (3) Migraine: Status: Acute (4) Seizure: Status: Acute (5) Staring episodes: Status: Acute DS: Summary Hospital Course Hospital Course: Patient is a 59-year-old female Armenian-speaking only with past medical history the stroke (patient unclear if she was actually diagnosed in the past), migraine, tobacco dependence 10-15 cigarettes per day, asthma/COPD, ,hernia, depression, fibromyalgia, GERD, anxiety/depression on diagnosed was BIBA after her friend who was driving with her called 911 because patient experienced an alteration in mental status while driving. , per friend patient had a blank stare and started producing saliva somewhat foamy at the mouth leaning towards the left side unable to control the car. Patient denies history of seizure but events do appear to resemble a possible seizure that occurred while patient was driving. Altered mental status, possible seizure witnessed less likely syncope resolved Neuro exam reassuring CT of the head negative for any acute finding Neurology consulted EEG -ve tele unremarkable Patient received 1 dose of keppra OA Seizure precautions No evidence of hypoglycemia brain MRI -ve per neuro no indication for AED, fu with them after discharge. Elevated Ddimer CTA negative for PE Severe depression/anxiety Psychiatry consulted, needs to fu with her regular therapist after discharge Patient experiencing significant depression often tearful, relating to the loss of her grandson's and son's and the fact that her son is in the hospital for depression Patient denies any suicide ideation or hallucinations COPD/asthma/tobacco dependent stable Patient currently on room air resume home meds Hyperlipidemia Continue atorvastatin Fibromyalgia Continue gabapentin Time Attestation Discharge Coordination Time (in mins): 40 mins Quality: Safe Use of Opioids Does Pt have an Active Cancer Diagnosis on the Problem List?: No Quality: Stroke Does the patient have a stroke diagnosis?: No Physical Exam Exam: Exam: A&Ox 3, cooperative , calm heart RRR resp: on RA, CTAB Abd, soft NT neuro: moving all extremities, speech normal, CN1-12 grossly intact no ELIZABETH Vital Signs: Vital Signs: Last Vital Signs Temp 97.3 F 09/11/25 12:00 Pulse 80 09/11/25 12:00 Resp 18 09/11/25 12:00 BP 103/65 09/11/25 12:00 Pulse Ox 93 09/11/25 12:00 O2 Del Method Room Air 09/11/25 12:00 BMI result Body Mass Index 29.4 DS: Data Data Completed and Pending Labs on day of discharge: Laboratory Results - last 24 hr 09/10/25 09/11/25 23:45 06:37 WBC 9.9 RBC 4.27 Hgb 13.0 Hct 39.0 MCV 91.3 MCH 30.4 MCHC 33.3 RDW 13.1 Plt Count 273 MPV 10.8 Absolute Nucleated RBC 0.000 Nucleated RBC % (auto) 0.0 POC Glucose 97 Discharge Plan Discharge Anticipated Discharge Date/Time: 09/11/25 15:04 Patient Disposition: Home, Self-Care Discharge Diagnosis: AMS likely due to migraine Referrals: Branden Lane MD [Primary Care Provider, Internal Medicine] - 1 Week Discharge Medications: Continued montelukast 10 mg tablet 10 mg PO BEDTIME Qty: 30 1RF cyclobenzaprine 5 mg tablet 5 mg PO Q8H PRN (Reason: muscle spasm) 5 Days Qty: 15 0RF mirtazapine 7.5 mg tablet 7.5 mg PO BEDTIME Qty: 30 1RF topiramate 25 mg tablet 25 mg PO BEDTIME Qty: 30 1RF loratadine 10 mg tablet 10 mg PO DAILY PRN (Reason: for allergies) Qty: 30 3RF gabapentin 300 mg capsule 300 mg PO TID 30 Days Qty: 90 2RF (DME) NEBULIZER with all related accessories See Rx Instructions .Route .MEDSUPPLY Qty: 1 0RF Rx Instructions: As directed up to 4 times a day as needed meloxicam 15 mg tablet 15 mg PO DAILY PRN (Reason: for pain) Qty: 30 1RF atorvastatin 10 mg tablet 10 mg PO BEDTIME Qty: 90 1RF albuterol sulfate [Ventolin HFA] 90 mcg/actuation HFA aerosol inhaler 2 puff inhalation Q4-6H PRN (Reason: shortness of breath or wheezing) Qty: 8.5 2RF (DME) nebulizers Misc See Rx Instructions .Route Qty: 1 2RF Rx Instructions: As directed tramadol 50 mg tablet 50 mg PO Q8H PRN (Reason: pain) 30 Days Qty: 90 0RF zolpidem 10 mg tablet 10 mg PO BEDTIME PRN (Reason: insomnia) 30 Days Qty: 30 0RF clonazepam 1 mg tablet 1 mg PO TID PRN (Reason: anxiety) 30 Days Qty: 90 0RF budesonide-formoterol [Symbicort] 160-4.5 mcg/actuation HFA aerosol inhaler 2 puff inhalation BID sucralfate 1 gram tablet 1 g PO QID Qty: 120 3RF bupropion HCl 200 mg tablet sustained-release 12 hr 200 mg PO BID Qty: 180 1RF hydroxyzine HCl 25 mg tablet 25 mg PO Q8H PRN (Reason: for anxiety) Qty: 90 1RF pantoprazole 40 mg tablet,delayed release (DR/EC) 40 mg PO DAILY 30 Days Qty: 30 5RF (DME) Aerochamber MV Spacer See Rx Instructions .ROUTE .MEDSUPPLY Qty: 1 0RF Rx Instructions: As directed albuterol sulfate 2.5 mg /3 mL (0.083 %) solution for nebulization 2.5 mg continuous nebulization Q6H 30 Days Qty: 360 5RF Discharge Orders: Discharge Order (Routine); Ordered 09/11/25 Ordered By: Sosa Rivera Diet: Low salt diet Activity on Discharge: As tolerated Stand Alone Forms: Patient Portal Discharge page Print Language: Armenian Care Plan Goals: as below Health Concerns: as below Plan of Treatment: Pt was salvatore tin with AMS with a staring episode while driving. ALl inpt work up has been -ve for seizure. She has been cleared by Neuro for outpt fu. No AED indicated at this time. pt to resume home meds. Assessment: as above Patient Instructions: Migraine Headache (GEN)
--- NOTE | 2025-09-11 15:16 | MHC.CM.PN ---
PT MEDICALLY CLEARED FOR DC HOME SELF CARE, PER MD PSYCH REPORTS PT SHOULD FOLLOW-UP W/OUTPT PROVIDERS, PT'S SISTER WILL TRANSPORT.
== END 2025-09-11 16:29 | disposition home or self-care (01) | DRG 54 ==
LOC: HO.ED 20:49 → HO.EDOVER 09-10 00:05 → HO.IMC 09-10 17:05
PROVIDERS: Nurse Practitioner Family; Admitting Provider Internal Medicine; Emergency Provider Emergency Medicine Emergency Medical Services; PCP Internal Medicine; Visit Provider Hospitalist
DX: G43.909 Migraine, unspecified, not intractable, without status migrainosus (principal); R56.9 Unspecified convulsions; E78.5 Hyperlipidemia, unspecified; F17.210 Nicotine dependence, cigarettes, uncomplicated; J44.9 Chronic obstructive pulmonary disease, unspecified; M79.7 Fibromyalgia; F32.A Depression, unspecified; F41.9 Anxiety disorder, unspecified; Z63.4 Disappearance and death of family member; Z71.6 Tobacco abuse counseling; Z79.899 Other long term (current) drug therapy
CPT/HCPCS: 36415; 70450; 70553; 71275; 80053; 80061; 80143; 80179; 80307; 81001; 82947; 83036; 83735; 84443; 84484; 85025; 85027; 85379; 85610; 93005; 93306; 95816; 99285; A9585; J1650; J1953; J2405; Q9957; Q9967

== ENCOUNTER → 2025-09-09 19:42 | Outpatient (BNV) | payer OTHER, SELFPAY | PROVIDERS: Admitting Provider Internal Medicine; Emergency Provider Emergency Medicine Emergency Medical Services; PCP Internal Medicine; Visit Provider Internal Medicine Cardiovascular Disease | DX: R07.9 Chest pain, unspecified (principal) | CPT/HCPCS: 93010 ==

== ENCOUNTER → 2025-09-09 20:15 | Outpatient (BNV) | payer OTHER, SELFPAY | PROVIDERS: Emergency Provider Emergency Medicine Emergency Medical Services; PCP Internal Medicine; Visit Provider Radiology Neuroradiology | DX: R41.82 Altered mental status, unspecified (principal) | CPT/HCPCS: 70450 ==

== ENCOUNTER 2025-09-09 23:53 | Outpatient (BNV) | payer OTHER, SELFPAY | END 2025-09-11 11:52 | PROVIDERS: Admitting Provider Internal Medicine; Emergency Provider Emergency Medicine Emergency Medical Services; PCP Internal Medicine; Visit Provider Radiology Diagnostic Radiology | DX: G40.89 Other seizures (principal); G31.89 Other specified degenerative diseases of nervous system | CPT/HCPCS: 70553 ==

== ENCOUNTER 2025-09-09 23:53 | Outpatient (BNV) | payer OTHER, SELFPAY | END 2025-09-10 08:43 | PROVIDERS: Admitting Provider Internal Medicine; Emergency Provider Emergency Medicine Emergency Medical Services; PCP Internal Medicine; Visit Provider Internal Medicine Cardiovascular Disease | DX: I45.10 Unspecified right bundle-branch block (principal) | CPT/HCPCS: 93010 ==

== ENCOUNTER 2025-09-09 23:53 | Outpatient (BNV) | payer OTHER, SELFPAY | END 2025-09-10 15:00 | PROVIDERS: Admitting Provider Internal Medicine; Emergency Provider Emergency Medicine Emergency Medical Services; PCP Internal Medicine; Visit Provider Psychiatry & Neurology Neurology | DX: G40.89 Other seizures (principal) | CPT/HCPCS: 95816 ==

== ENCOUNTER → 2025-09-09 23:53 | Outpatient (BNV) | payer OTHER, SELFPAY | PROVIDERS: Admitting Provider Internal Medicine; Emergency Provider Emergency Medicine Emergency Medical Services; PCP Internal Medicine; Visit Provider Nurse Practitioner Family | DX: F41.9 Anxiety disorder, unspecified (principal); F33.9 Major depressive disorder, recurrent, unspecified; R40.4 Transient alteration of awareness | CPT/HCPCS: 99223; 99239; 99499 ==

== ENCOUNTER → 2025-09-09 23:53 | Outpatient (BNV) | payer OTHER, SELFPAY | PROVIDERS: Admitting Provider Internal Medicine; Emergency Provider Emergency Medicine Emergency Medical Services; PCP Internal Medicine; Visit Provider Nurse Practitioner | DX: R40.4 Transient alteration of awareness (principal); G43.909 Migraine, unspecified, not intractable, without status migrainosus | CPT/HCPCS: 99222 ==